=== PATIENT | female | born 1985 | race Hispanic/Latino ===

== ENCOUNTER 2019-09-14 07:26 | Outpatient (CLI) | payer OTHER, SELFPAY ==
--- NOTE | ~2019-09-14 | US_ITS ---
US breast BI complete DATE: 09/14/2019 13:46 INDICATION: Mastodynia TECHNIQUE: Bilateral complete breast ultrasound examination COMPARISON: None FINDINGS: Right breast: 7:00 near nipple: There is a 10.7 x 12.3 mm mass with prominent posterior shadowing. Mammographic cor relation is recommended. Left breast: 6:00 1 cm from nipple: 4.9 x 6.3 x 10 mm parallel irregular hypoechoic mass with internal vascularity is noted. Mammographic correlation is recommended. IMPRESSION: BI-RADS Category 0: Incomplete; need additional imaging evaluation Recommendation: Bilateral diagnostic mammography Reviewed, dictated and finalized at [facility]. Reviewed, dictated and finalized at location A.
--- NOTE | ~2019-09-14 | MM_ITS ---
EXAMINATION: MM diagnostic yesica BI w kalee HISTORY: Bilateral breast sonographic abnormalities TECHNIQUE: ML, MLO and craniocaudal 3-D tomosynthesis images of were performed and synthetic 2-D imag es were generated. CAD analysis was submitted and interpreted. COMPARISON: 09/14/2019 bilateral complete breast ultrasound examination BREAST PARENCHYMAL COMPOSITION: The breasts are heterogeneously dense, which may obscure small masses . FINDINGS: There is a prominent calcification of the right breast in the subareolar area which account s for the prominent area of shadowing noted sonographically. No definite mammographic correlate is noted for the 6:00 left breast 4.9 x 6.3 x 10 mm parallel irreg ular hypoechoic mass with internal vascularity noted sonographically. Ultrasound-guided biopsy is rec ommended. IMPRESSION: 1. Left breast mass at 6:00 1 cm from nipple 2. Ultrasound-guided biopsy of left breast mass at 6:00 is recommended. BI-RADS category 4, suspicious findings. Dr. Mitchell reported the findings and ultrasound guided biopsy recommendation on 09/14/2019 at 1615 hours to Linda Duffy Reviewed, dictated and finalized at location A. IMPRESSION: 1. Left breast mass at 6:00 1 cm from nipple 2. Ultrasound-guided biopsy of left breast mass at 6:00 is recommended. BI-RADS category 4, suspicious findings. Dr. Mitchell reported the findings and ultrasound guided biopsy recommendation on at 1615 hours to Linda Duffy
== END 2019-09-14 07:27 | disposition home or self-care (01) ==
PROVIDERS: Visit Provider Physician Assistant
DX: N64.4 Mastodynia (principal); R92.8 Other abnormal and inconclusive findings on diagnostic imaging of breast
CPT/HCPCS: 76641; 77062; 77066; G0279

== ENCOUNTER 2019-09-18 09:15 | Outpatient (CLI) | payer OTHER, SELFPAY ==
--- NOTE | 2019-09-18 | EST_ITS ---
Patient Info Name: Linda Willett Age: 34 years : 1985 Gender: Female Ht: 62 in Wt: 160 lbs BSA: 1.81 m2 Exam Date: 09/18/2019 9:57 AM Exam Location: [facility] Stress Patient Status: Outpatient Admit Date: 09/18/2019 Staff Ordering Physician: TatiLinda Attending Provider: Tati, Linda EMERY Exercise Technologist: Suellen Owen, BEN Nurse: Bonnie Kevin, ANP, ACNP-BC Exam Type: CA stress test treadmill Study Info Indications R07.9 - Chest pain, unspecified A treadmill exercise stress test was performed. Summary 1. Negative exercise treadmill stress test for ischemia. 2. reduced functional capacity. 3. No significant arrhythmias seen. 4. Hypertensive blood pressure response. Protocol: Mike Stress ECG Details Stage: REST Duration (min): 5 min : 49 sec Speed (mph): 0.0 Grade (%): 0 HR (bpm): 90 SBP (mmHg): 120 DBP (mmHg): 82 METS: --- Stage: REST Duration (min): 18 min : 55 sec Speed (mph): 0.0 Grade (%): 0 HR (bpm): 86 SBP (mmHg): 120 DBP (mmHg): 82 METS: --- Stage: STAGE 1 Duration (min): 1 min : 0 sec Speed (mph): 1.7 Grade (%): 10 HR (bpm): 129 SBP (mmHg): 120 DBP (mmHg): 82 METS: --- Stage: STAGE 1 Duration (min): 2 min : 0 sec Speed (mph): 1.7 Grade (%): 10 HR (bpm): 152 SBP (mmHg): 120 DBP (mmHg): 82 METS: --- Stage: STAGE 1 Duration (min): 3 min : 0 sec Speed (mph): 1.7 Grade (%): 10 HR (bpm): 158 SBP (mmHg): 147 DBP (mmHg): 61 METS: --- Stage: STAGE 2 Duration (min): 1 min : 0 sec Speed (mph): 2.5 Grade (%): 12 HR (bpm): 166 SBP (mmHg): 147 DBP (mmHg): 61 METS: --- Stage: STAGE 2 Duration (min): 2 min : 0 sec Speed (mph): 2.5 Grade (%): 12 HR (bpm): 168 SBP (mmHg): 186 DBP (mmHg): 72 METS: --- Stage: STAGE 2 Duration (min): 3 min : 0 sec Speed (mph): 2.5 Grade (%): 12 HR (bpm): 173 SBP (mmHg): 186 DBP (mmHg): 72 METS: --- Stage: STAGE 3 Duration (min): 0 min : 39 sec Speed (mph): 3.4 Grade (%): 14 HR (bpm): 178 SBP (mmHg): 186 DBP (mmHg): 72 METS: --- Stage: RECOVERY Duration (min): 0 min : 20 sec Speed (mph): 0.0 Grade (%): 0 HR (bpm): 172 SBP (mmHg): 186 DBP (mmHg): 72 METS: --- Stage: RECOVERY Duration (min): 1 min : 20 sec Speed (mph): 0.0 Grade (%): 0 HR (bpm): 132 SBP (mmHg): 186 DBP (mmHg): 72 METS: --- Stage: RECOVERY Duration (min): 2 min : 20 sec Speed (mph): 0.0 Grade (%): 0 HR (bpm): 128 SBP (mmHg): 160 DBP (mmHg): 52 METS: --- Stage: RECOVERY Duration (min): 3 min : 20 sec Speed (mph): 0.0 Grade (%): 0 HR (bpm): 116 SBP (mmHg): 158 DBP (mmHg): 64 METS: --- St
== END 2019-09-18 09:16 | disposition home or self-care (01) ==
LOC: ANHCARD 09:16
PROVIDERS: Visit Provider Physician Assistant
DX: R07.9 Chest pain, unspecified (principal)
CPT/HCPCS: 93017

== ENCOUNTER 2019-09-25 09:17 | Outpatient (CLI) | payer OTHER, SELFPAY ==
--- NOTE | ~2019-09-25 | MMUS_ITS ---
EXAMINATION: US breast biopsy LT w image, MM post biopsy invasive LT DATE: 09/25/2019 11:54 (accession [id number]), 09/25/2019 11:27 (accession [id number]) INDICATION: Indeterminate left breast mass Ultrasound-guided core biopsy is requested to evaluate fo r malignancy. TECHNIQUE AND FINDINGS: The risks of the procedure were discussed with the patient through a deputy [place] marshal including bleeding an d infection. A time out was performed. The skin of the left breast was prepared and draped in usual s terile fashion. 1% lidocaine was used for superficial anesthesia. 1% lidocaine with epinephrine was u sed for deep anesthesia. A vacuum-assisted biopsy gun needle was advanced through to the outer edge of the region of interest from a lateral approach utilizing sonographic guidance. A total of three tissue core samples were obt ained through the lesion. A tissue marker clip was then placed at the biopsy site. Hemostasis was ach ieved. A sterile bandage was applied. The patient tolerated procedure well and there was no evidence of immediate complication. The patient was given verbal instructions to return to the Emergency Department in the event of severe breast pa in or rapid breast enlargement. A two view left breast mammogram was obtained to document tissue adriano er clip placement. IMPRESSION: 1. Successful ultrasound-guided vacuum-assisted biopsy of left breast mass with tissue marker placeme nt. Reviewed, dictated and finalized at location A. IMPRESSION: 1. Successful ultrasound-guided vacuum-assisted biopsy of left breast mass with tissue marker placement.
== END 2019-09-25 09:18 | disposition home or self-care (01) ==
PROVIDERS: PCP Physician Assistant; Visit Provider Physician Assistant
DX: R92.8 Other abnormal and inconclusive findings on diagnostic imaging of breast (principal)
CPT/HCPCS: 19083; 88305

== ENCOUNTER 2019-12-19 16:14 | Emergency (ER) | payer OTHER, SELFPAY ==
--- NOTE | ~2019-12-19 | CT_ITS ---
EXAMINATION: CT brain wo con DATE: 12/19/2019 17:50 INDICATION: Severe headache TECHNIQUE: Computed tomography (CT) of the head was performed without intravenous contrast. Sagittal and coronal reconstructions were performed. The mA was adjusted according to patient size. Iterative reconstruction technique was employed. The dose-length product was 605.33 mGy-cm. COMPARISON: None FINDINGS: No acute intracranial hemorrhage, acute infarction or abnormal extra axial fluid collection. Ventricl es are normal and symmetric. No mass/mass effect. The orbits, paranasal sinuses and mastoid air cells are normal. IMPRESSION: 1. Normal brain. No acute intracranial process. Reviewed, dictated and finalized at location A.
[2019-12-19 16:52] VITALS: BP 121/83; PULSE 87; RESP 20; TEMP 36.4; O2SAT 100
--- NOTE | 2019-12-19 16:57 | ED.HA ---
HPI - Headache General Chief Complaint: Headache Stated Complaint: CHERRY Time Seen by Provider: 12/19/19 16:57 History of Present Illness HPI Narrative: Previously healthy 34 yo female presents for a CHERRY. She has had a constant CHERRY for the past 6 days. It radiates from the left arm and neck to the posterior head. She has associated dizzinees, especially with movement. She saw her PCP and was started on sumatriptan, which has not helped. No numbness, weakness, fever, nausea, vomiting, photophobia. Related Data Allergies Allergy/AdvReac Type Severity Reaction Status Date / Time No Known Allergies Allergy Verified 12/19/19 17:17 Review of Systems Review of Systems: All systems reviewed & are unremarkable except as noted in HPI and below Constitutional: Constitutional: Denies fever(s) and Denies weakness Eyes: Eyes: Denies change in vision and Denies photophobia ENT: Denies sore throat Comments: left ear pain Cardiovascular: Cardiovascular: Denies chest pain Respiratory: Respiratory: Denies dyspnea Gastrointestinal: Gastrointestinal: Denies abdominal pain Musculoskeletal: Musculoskeletal: Denies back pain Neurologic: Reports vertigo, Denies syncope, Reports headache(s), Denies numbness and Denies weakness PMFSH Social History Social History Smoking status: Never smoker Exam Const: General: healthy appearing, no acute distress and alert Nutritional Appearance: well nourished Orientation/consciousness: patient oriented x3 HENMT: Head: normal to inspection Ears: TM's normal bilaterally and EAC's normal Eyes: Pupils: Equal, round and reactive pupils present EOM: EOMs intact bilaterally Resp: Effort & Inspection: normal respiratory effort Auscultation: clear to auscultation bilaterally Cardio: Rate: regular rate Rhythm: regular rhythm GI: GI Palp: Yes Soft to palpation and No Tenderness to palpation present (GI) Skin: General skin exam: normal color Neuro: General: patient oriented x3, moves all extremities, no focal motor deficits and CN's II-XI intact bilaterally Cranial nerves: Yes Nystagmus not present (becomes dizzy with testing) Speech: normal speech Extrem: General: normal to inspection Course Vital Signs Vital signs: Vital Signs Temperature 36.4 C 12/19/19 16:52 Pulse Rate 87 12/19/19 16:52 Respiratory Rate 20 12/19/19 16:52 Blood Pressure 121/83 12/19/19 16:52 Pulse Oximetry 100 12/19/19 16:52 Temperature 36.4 C 12/19/19 16:52 Pulse Rate 87 12/19/19 16:52 Respiratory Rate 12/19/19 16:52 Blood Pressure 121/83 12/19/19 16:52 Pulse Oximetry 100 12/19/19 16:52 MDM - Headache MDM Narrative Medical decision making narrative: CT negative. Mild improvement in pain with treatment. CHERRY seems most consistent with tension headache. Differential Diagnosis Differential diagnosis: Likely migraine, tension headache and headache Medical Records Attestation: I reviewed the patient's medical records. Lab Data Attestation: I reviewed the patient's lab results. Imaging Data Radiologist's impression: ITS Impressions Head CT 12/19/19 17:59 IMPRESSION: 1. Normal brain. No acute intracranial process. Discharge Plan Discharge Clinical Impression: Tension headache Patient Disposition: Home, Self-Care Condition: Stable Instructions: Tension Headache (ED) Prescriptions: New ibuprofen 600 mg tablet 600 mg PO QID PRN (Reason: pain) Qty: 30 RF: 0 acetaminophen 500 mg tablet 1,000 mg PO QID MDD 3000 mg PRN (Reason: pain) Qty: 60 RF: 0 meclizine 25 mg tablet 25 - 50 mg PO TID PRN (Reason: dizziness) Qty: 30 RF: 0 Follow-up/Referrals: Tati,RUPERT Rousseau [Primary Care Provider] -
[2019-12-19] MEDS: SODIUM CHLORIDE 0.9% IV 1,000 ML 999 ML IV CONT (17:23)
[2019-12-19] MEDS: KETOROLAC 30 MG/ML VIAL (*BKC) IV PUSH (17:24)
[2019-12-19] MEDS: METOCLOPRAMIDE HCL INJ 10 MG/2 ML VIAL IV PUSH (17:24)
[2019-12-19] MEDS: diphenhydrAMINE HCl INJ 50 MG/ML VIAL 25 MG IV PUSH (17:24)
[2019-12-19] MEDS: diazePAM INJ (*CRX) 10 MG/2 ML SYRINGE 2 MG IV PUSH (17:24)
[2019-12-19] MEDS: MECLIZINE HCL 25 MG TABLET PO (18:46)
[2019-12-19] MEDS: VALPROIC ACID INJ 500 MG in DEXTROSE 5% 100 ML 100 MG IVPB (18:46)
[2019-12-19 19:56] VITALS: BP 122/78; PULSE 88; RESP 18; TEMP 36.6; O2SAT 98
== END 2019-12-19 19:57 | disposition home or self-care (01) ==
PROVIDERS: Emergency Provider Emergency Medicine; PCP Physician Assistant
DX: G44.209 Tension-type headache, unspecified, not intractable (principal)
CPT/HCPCS: 70450; 96365; 96367; 96375; 99284; A9270; J0131; J1200; J1885; J2765; J3360; J7030

== ENCOUNTER 2020-05-16 14:45 | Emergency (ER) | payer OTHER, SELFPAY ==
--- NOTE | ~2020-05-16 | XR_ITS ---
EXAMINATION: XR chest 1V portable DATE: 05/16/2020 15:51 INDICATION: Right chest pain. TECHNIQUE: A single frontal view of the chest was obtained. COMPARISON: None. FINDINGS: There is mild atelectasis at left lung base. No pleural effusion or pneumothorax. The heart size is normal. IMPRESSION: 1. Mild atelectasis at left lung base. Reviewed, dictated and finalized at location A. GE DESIGN ENGINEER
[2020-05-16 14:49] VITALS: BP 143/95; PULSE 93; RESP 15; O2SAT 100
[2020-05-16 14:57] VITALS: PULSE 91
--- NOTE | 2020-05-16 15:12 | PC.NURSE ---
Report to RITA Gordon, to continue care.
[2020-05-16 15:21] VITALS: BP 137/97; PULSE 95; RESP 20; TEMP 36.7; O2SAT 97
--- NOTE | 2020-05-16 15:24 | ECG_ITS ---
Measurements Intervals [place] Rate: 90 P: 38 PA: 132 QRS: 4 QRSD: 108 T: 31 QT: 371 QTc: 455 Interpretive Statements SINUS RHYTHM LOW QRS VOLTAGE IN PRECORDIAL LEADS BORDERLINE T WAVE ABNORMALITY- ANTERIOR LEADS BASELINE ARTIFACT- I, II, AVR, V1, V3-V6 BORDERLINE ECG Electronically Signed On 05-16-2020 16:19:30 CONTRACT COORDINATOR by Eugene Contreras D.O.
[2020-05-16 15:36] LABS: Basophils Absolute Auto 0.1 K/mm3 (0.0-0.1); Basophils Percent Auto 0.8 % (0.2-1.2); Eosinophils Absolute Auto 0.2 K/mm3 (0-0.3); Eosinophils Percent Auto 2.5 % (0-4.4); Hemoglobin 11.9 g/dL (12.0-15.0); Immature Granulocyte Absolute 0.03 K/mm3 (0.00-0.031); Immature Granulocyte Percent A 0.4 % (0-0.5); Lymphocytes Absolute Auto 2.75 K/mm3 (0.9-3.2); Lymphocytes Percent Auto 32.5 % (18.3-44.2); Mean Corpuscular Hemoglobin 29.2 pg (26-34); Mean Corpuscular Volume 85.8 fl (80-100); Mean Platelet Volume 10.8 fl (7.4-10.4); Monocytes Absolute Auto 0.8 K/mm3 (0.1-0.6); Monocytes Percent Auto 9.8 % (2.6-8.5); Neutrophils Absolute Auto 4.6 K/mm3 (1.3-6.7); Platelet Count Result 335 k/mm3 (150-375); Red Blood Count 4.08 M/mm3 (4.2-5.4); Red Cell Distribution Width 13.5 % (11.5-14.5); White Blood Count 8.5 K/mm3 (4.5-10.0)
--- NOTE | 2020-05-16 15:37 | PC.NURSE ---
Patient reports taking 1000mg tylenol approximately 2 hours ago.
[2020-05-16 15:58] LABS: Anion Gap 9 mmol/L (8-16); Blood Urea Nitrogen 9 mg/dL (7-17); Calcium 9.1 mg/dL (8.4-10.2); Carbon Dioxide 25 mmol/L (22-30); Chloride 105 mmol/L (98-107); Estimated CRCL calculation 139 ml/min; Estimated Glomerular Filt Rate > 60; Glucose 101 mg/dL (65-105); Potassium 3.4 mmol/L (3.4-5.0); Sodium 139 mmol/L (137-145)
[2020-05-16 15:59] LABS: Troponin I < 0.012 ng/mL (0.000-0.034)
[2020-05-16 15:59] LABS: Add Urine Microscopic? YES; Appearance Urine Clear (Clear); Bilirubin Urine Negative (Negative); Blood Urine 2+ (Negative); Color Urine Colorless (Yellow); Glucose Urine UA Negative (Negative); Ketones Urine Negative (Negative); Leukocyte Esterase Ur Negative LEU/UL (Negative); Mucus Urine Rare /lpf; Nitrate Urine Negative (Negative); Protein Urine Negative (Negative); RBC Urine 0-2 /hpf (0-2); Specific Grav Ur 1.008 (1.001-1.035); Squamous Epithelial Cell Urine Occasional /hpf (Few); Urobilinogen Urine Negative mg/dL (<2.0); WBC Urine 0-3 /hpf
[2020-05-16 16:17] VITALS: BP 108/74; PULSE 116; RESP 22; O2SAT 100
--- NOTE | 2020-05-16 16:24 | ED.GENADULT ---
HPI - General Adult General Chief complaint: Chest Pain Stated complaint: CP, throat, and ear pain Time Seen by Provider: 05/16/20 14:53 Source: patient and interpreter translator ([employer]) Mode of arrival: ambulatory Limitations: language barrier History of Present Illness HPI narrative: 34-year-old female On April 23 she was tested positive for Covid On May 08 she exited quarantine and went back to work For the last week she continues to complain of ear pain mostly on the right side a sore scratchy throat fatigue aches and right-sided chest pain She is not having any more productive cough or fevers Onset (ago): day(s) Related Data Home Medications Medication Instructions Recorded Confirmed azithromycin 500 mg PO DAILY 05/16/20 Allergies Allergy/AdvReac Type Severity Reaction Status Date / Time Penicillins Allergy Rash Verified 05/16/20 15:24 Review of Systems Review of Systems: All systems reviewed & are unremarkable except as noted in HPI and below Constitutional: Constitutional: Denies chills, Reports fatigue, Denies fever(s), Denies headache(s) and Reports weakness Eyes: Eyes: Reports no additional eye complaints and Denies change in vision ENT: Denies headache(s), Denies epistaxis, Reports nasal congestion and Denies sore throat Comments: Sore throat Cardiovascular: Cardiovascular: Reports chest pain, Denies leg edema, Denies palpitations and Denies dyspnea Respiratory: Respiratory: Denies cough, Denies dyspnea and Denies wheezing Gastrointestinal: Gastrointestinal: Denies abdominal pain, Denies diarrhea, Reports nausea and Denies vomiting Genitourinary: Genitourinary: Denies hematuria, Denies urinary frequency and Denies dysuria Musculoskeletal: Musculoskeletal: Reports myalgias, Denies deformity, Denies arthralgias, Denies joint swelling, Denies muscle weakness and Denies numbness Integumentary/Breasts: Skin/Breast: Denies rash and Denies wounds Neurologic: Denies headache(s), Denies focal weakness, Denies numbness and Denies weakness Psychiatric: Psychiatric: Reports no additional psychiatric complaints Endocrine: Endocrine: Reports fatigue and Denies palpitations Hematologic/Lymphatic: Hematologic/Lymphatic: Denies easy bleeding and Denies easy bruising Allergic/Immunologic: Allergic/Immunologic: Denies wheezing PMFSH Social History Social History (System 12/20/19 @ 12:27 by Ying Jang) Smoking status: Never smoker Gender identity (if verbalized by the patient): Female Exam Const: General: no acute distress, well developed and awake Nutritional Appearance: well nourished Orientation/consciousness: patient oriented x3 (alert) HENMT: Head: normocephalic and atraumatic Ears: external ears normal and TM's normal bilaterally General nose exam: No nasal discharge present and no epistaxis Face and sinus: face symmetric Mouth: Yes Normal oral and palatal mucosa present Eyes: Conjunctivae: conjunctivae normal Sclera: sclerae normal EOM: EOMs intact bilaterally Neck: Neck: normal visual inspection, no lymphadenopathy, supple and no JVD Chest: Chest palpation & inspection: deferred Resp: Effort & Inspection: normal respiratory effort Auscultation: clear to auscultation bilaterally, no rales, no rhonchi, no wheezes and other (BS =) Cardio: Rate: regular rate Rhythm: regular rhythm Heart sounds: no gallops and no murmurs GI: Inspection: normal to inspection GI Palp: Yes Soft to palpation and No Tenderness to palpation present (GI) Back/Spine/Pelvis: Thoracic/Lumbar Spine: thoracic and lumbar spine normal to inspection Skin: General skin exam: normal color and no rashes or lesions noted Neuro: General: patient oriented x3 (alert), moves all extremities and no focal motor deficits Cranial nerves: Yes facial symmetry Speech: normal speech Extrem: General: normal to inspection, full ROM and no pedal edema Psych: Affect: normal affect Course Vital Signs Joselyn
[2020-05-16 17:17] VITALS: BP 112/82; PULSE 81; RESP 14; TEMP 36.2; O2SAT 100
== END 2020-05-16 17:32 | disposition home or self-care (01) ==
PROVIDERS: Emergency Provider Emergency Medicine; PCP Physician Assistant
DX: G93.3 Postviral and related fatigue syndromes (principal); Z86.16 Personal history of COVID-19; R91.8 Other nonspecific abnormal finding of lung field; R94.31 Abnormal electrocardiogram [ECG] [EKG]
CPT/HCPCS: 36415; 71045; 80048; 81001; 84484; 85025; 93005; 99284

== ENCOUNTER 2020-08-30 15:37 | Outpatient (CLI) | payer OTHER, SELFPAY ==
--- NOTE | ~2020-08-30 | US_ITS ---
EXAMINATION: US soft tissue groin RT DATE: 08/30/2020 16:57 INDICATION: Unilateral inguinal hernia TECHNIQUE: Multiple grayscale and Doppler ultrasound images of the right groin were obtained. COMPARISON: None FINDINGS: Small amount of fat extending into an indirect right inguinal hernia originating lateral to the hypog astric vessels. This increases to a maximal of 2 cm in length and 1 cm in diameter with Valsalva. No evident herniated bowel. IMPRESSION: 1. Small fat-containing right inguinal hernia. Reviewed, dictated and finalized at location A.
--- NOTE | ~2020-08-30 | US_ITS ---
EXAMINATION: US carotid duplex BI DATE: 08/30/2020 16:53 INDICATION: Dizziness and giddiness. TECHNIQUE: Grayscale, color Doppler, and pulsed Doppler images of the cervical carotid arteries were obtained. The degree of vessel stenosis is placed in one of the following categories: normal, <50%, 5 0-69%, >=70% but less than near-occlusion, near-occlusion, or total occlusion. Note that percent sten osis relative to normal distal artery lumen diameter is indirectly measured from velocity measurement s as described by Wiley, et al. Radiology 2003; 229:340-346. COMPARISON: None. FINDINGS: RIGHT: The right common carotid artery (CCA) peak systolic velocity (PSV) is 103 cm/s. The right internal ca rotid artery (ICA) PSV is 90 cm/s. The right ICA end-diastolic velocity (EDV) is 19 cm/s. The right I CA/CCA PSV ratio is 0.9. Grayscale and color Doppler images demonstrate no evident stenosis or plaque in the ICA. The external carotid artery (ECA) PSV is 90 cm/s. There is antegrade flow in the right v ertebral artery. LEFT: The left CCA PSV is 92 cm/s. The left ICA PSV is 82 cm/s. The left ICA EDV is 40 cm/s. The left ICA/C CA PSV ratio is 0.9. Grayscale and color Doppler images demonstrate no appreciable stenosis or plaque in the ICA. The ECA PSV is 74 cm/s. There is antegrade flow in the left vertebral artery. IMPRESSION: 1. No evident plaque or stenosis in the right internal carotid artery. 2. No evident plaque or stenosis in the left internal carotid artery. Reviewed, dictated and finalized at location A.
== END 2020-08-30 15:38 | disposition home or self-care (01) ==
PROVIDERS: PCP Physician Assistant; Visit Provider Physician Assistant
DX: R42 Dizziness and giddiness (principal); K40.90 Unilateral inguinal hernia, without obstruction or gangrene, not specified as recurrent
CPT/HCPCS: 76882; 93880

== ENCOUNTER 2021-01-28 17:31 | Emergency (ER) | payer OTHER, SELFPAY ==
[2021-01-28 17:41] VITALS: BP 147/103; PULSE 61; RESP 18; TEMP 36.2; O2SAT 100
--- NOTE | 2021-01-28 19:14 | ED.GENADULT ---
HPI - General Adult General Chief complaint: Dental/Oral Stated complaint: dental pain Time Seen by Provider: 01/28/21 18:08 Source: patient Mode of arrival: ambulatory Limitations: language barrier (Mozambican-speaking translation line used) History of Present Illness HPI narrative: Patient is a 35-year-old female presented with chief complaint of dental pain causing headache due to to upper molar for labor point year ago when it broke 1 month ago. Patient reports over the past few days she has noticed increased pain especially to the left upper molar. Patient denies any drainage from the area. Patient reports she has been attempting to get into a dentist but has not been able to obtain an appointment today. Patient fever, chills, nausea, vomiting, diarrhea or any other symptoms. Patient denies chance of due to surgical control method. Related Data Allergies Allergy/AdvReac Type Severity Reaction Status Date / Time No Known Allergies Allergy Verified 01/28/21 17:44 Review of Systems Review of Systems: CONSTITUTIONAL: Denies fever, chills, or sweats. EYES: Denies visual changes, redness, or discharge. ENT: Reports dental pain denies rhinorrhea, congestion, sore throat, or otalgia. CARDIOVASCULAR: Denies chest pain, palpitations, or edema. RESPIRATORY: Denies cough or dyspnea. GASTROINTESTINAL: Denies abdominal pain, nausea, vomiting, or diarrhea. GENITOURINARY: Denies dysuria or hematuria. SKIN: Denies rash or itching. MUSCULOSKELETAL: Denies back pain, joint pain, or myalgia. NEUROLOGIC: Reports headache, denies numbness, dizziness, or weakness. PSYCHIATRIC: Denies anxiety or depression. Exam Narrative: GENERAL: Well-appearing, well-nourished, and in no acute distress. HEAD: Normocephalic, atraumatic. EYES: PERRLA and EOMI. ENT: Nares clear, no rhinorrhea or epistaxis. Mucous membranes moist. Oropharynx without tonsillar hypertrophy exudate or other lesions. Bilateral TMs pearly ramon nonbulging. Cavities and broken induration noted. Is a broken upper left molar. No abscess is noted there is mild erythema. NECK: Supple. No adenopathy or masses. Range of motion intact CHEST: Clear to auscultation. No respiratory distress. No wheezes rales or rhonchi HEART: Regular rate and rhythm. No murmur heard. Normal peripheral pulses EXTREMITIES: Normal range of motion. No edema. SKIN: Warm, dry, no rash. NEURO: No focal deficits. Alert and oriented x3. PSYCH: Normal mood and affect. Course Vital Signs Vital signs: Vital Signs Temperature 97.1 F L 01/28/21 17:41 Pulse Rate 61 01/28/21 17:41 Respiratory Rate 18 01/28/21 17:41 Blood Pressure 147/103 H 01/28/21 17:41 Pulse Oximetry 100 01/28/21 17:41 Temperature 97.1 F L 01/28/21 17:41 Pulse Rate 80 01/28/21 19:48 Respiratory Rate 16 01/28/21 19:48 Blood Pressure 111/65 01/28/21 19:48 Pulse Oximetry 100 01/28/21 19:48 Medical Decision Making MDM Narrative Medical decision making narrative: Presents with patient the importance of following up with dentist for definitive treatment. Patient will be prescribed cephalexin. Patient reports allergy to penicillin but states that she has not had any results from the blood thinner in the past. Patient will also be prescribed naproxen and lidocaine viscous. Patient is desiring Toradol injection in emergency department. Patient instructed to return to emergency department if develops any emergent symptoms. Vital Signs Vital Signs: Vital Signs Temperature 97.1 F L 01/28/21 17:41 Pulse Rate 61 01/28/21 17:41 Respiratory Rate 18 01/28/21 17:41 Blood Pressure 147/103 H 01/28/21 17:41 Pulse Oximetry 100 01/28/21 17:41 Temperature 97.1 F L 01/28/21 17:41 Pulse Rate 80 01/28/21 19:48 Respiratory Rate 16 01/28/21 19:48 Blood Pressure 111/65 01/28/21 19:48 Pulse Oximetry 100 01/28/21 19:48 Discharge Plan Discharge Clinical Impression: Toothache
[2021-01-28 19:48] VITALS: BP 111/65; PULSE 80; RESP 16; O2SAT 100
[2021-01-28] MEDS: KETOROLAC 30 MG/ML VIAL (*BKC) IM (19:49)
== END 2021-01-28 19:55 | disposition home or self-care (01) ==
PROVIDERS: Emergency Provider Family Medicine; PCP Physician Assistant
DX: K08.89 Other specified disorders of teeth and supporting structures (principal)
CPT/HCPCS: 96372; 99283; J1885

== ENCOUNTER 2021-09-29 15:56 | Outpatient (CLI) | payer OTHER, SELFPAY ==
--- NOTE | ~2021-09-29 | XR_ITS ---
EXAMINATION: XR chest 2V 09/29/2021 16:38 INDICATION: Chest pain. Cough. PROCEDURE: 2 view chest COMPARISON: 05/16/2020 FINDINGS: The lungs are clear. The cardiomediastinal silhouette is within normal limits. There are no pleural effusions. There is no pneumothorax suspected. IMPRESSION: 1: NO ACUTE CARDIOPULMONARY DISEASE. Reviewed, dictated and finalized at location A.
--- NOTE | ~2021-09-29 | XR_ITS ---
XR thoracic spine 2V 09/29/2021 16:38 Indication: Thoracic back pain and cough Procedure: 2 views of the thoracic spine Comparison: No prior studies for comparison. Findings: Vertebral body heights are maintained. No fracture, subluxation or dislocation. Pedicles in tact. No paraspinal soft tissue abnormality. There is levoscoliosis centered at T10. No paraspinal so ft tissue abnormality. Impression: 1: Levoscoliosis. Reviewed, dictated and finalized at location A. Impression: 1: Levoscoliosis.
--- NOTE | ~2021-09-29 | XR_ITS ---
XR cervical spine 4-5V INDICATION: Neck pain TECHNIQUE: 5 views of the cervical spine. FINDINGS: The cervical spine is visualized to the cervicothoracic junction. There is no prevertebral soft tiss ue swelling, listhesis, or loss of vertebral body height. Intervertebral disc spaces are normal. Th e osseous central canal is patent. No displaced cervical spine fractures are identified. IMPRESSION: 1. No significant abnormality of the cervical spine. Reviewed, dictated and finalized at location A.
== END 2021-09-29 15:57 | disposition home or self-care (01) ==
PROVIDERS: PCP Physician Assistant; Visit Provider Physician Assistant
DX: M54.6 Pain in thoracic spine (principal); M54.2 Cervicalgia; R05.3 Chronic cough; M41.9 Scoliosis, unspecified
CPT/HCPCS: 71046; 72050; 72070

== ENCOUNTER 2021-11-07 11:00 | Outpatient (RCR) | payer OTHER, SELFPAY ==
--- NOTE | 2021-09-26 11:04 | PTOPEVAL ---
Thank you for referring Linda Willett to [facility].? Linda is scheduled to be seen for therapy? 1 x/week for 6 weeks. Please review, sign, date and return this plan of care NOHELIA. I agree with and certify that the following plan of care is medically necessary. Referring Physician Date Attending Provider: RUPERT Ponce Past Medical History Source of Past Medical History Recalled from Previous Visit, Confirmed with Patient/Family Neurological History Hx Neurological Disorders No Significant History Cardiovascular History Hx Cardiac Disorders No Significant History Respiratory History Hx Respiratory Disorders No Significant History Gastrointestinal History Hx Appendectomy Yes Genitourinary History Hx Genitourinary Disorders No Significant History Musculoskeletal History Hx Back Pain Yes Hematological History Hx Hematological Disorders No Significant History Endocrine History Hx Diabetes Yes HEENT History Hx HEENT Disorders No Significant History Integumentary History Hx Skin Disorders No Significant History Reproductive History Hx Section Yes Hx Other Reproductive Disorders Yes: breast reduction Psychosocial History Hx Psychiatric Disorders No Significant History Pain History History of Any Previous or Ongoing No Significant History Instance of Pain Anesthesia History Hx Anesthesia Reactions No Significant History Evaluation Information Diagnosis chronic L shoulder pain Subjective Information both shoulders hurting for Query Text:As Reported By Patient/ about 4 years; no injury or Family trauma to shoulders; but 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; 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; 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; Diagnostic Tests X-Rays For This Problem No MRI For This Problem No Other Tests For This Problem No Previous Treatments Previous Treatments For This Problem PT in past- was for back pain; Prior Level of Function Activity Level (Last 3 Months) Hand Dominance Right Activity of Daily Living Ability Independent Indoor/Home Mobility Independent Community Mobility Independent Stairs Ability Independent Functional Cognition (Planning, Shopping Independent , Taking Medications) Cooking Yes Cleaning Yes Laundry Yes Shopping Yes Driving Yes Comments Additional Prior Level of Function baby sit children; lifting arm Comments up is hard to do; Pain Assess
--- NOTE | 2021-11-07 11:52 | PTOPEVAL ---
PHYSICAL THERAPY RE-EVALUATION 11-07-21 Refer to the clinical summary below, for her status today, compared to the initial evaluation. The goals were partially achieved. Discussed with her to contact you for a follow up appointment to reassess her shoulder. If PT is to continue, please issue her a new script, If additional orders are not received, she will be discharged from PT. Thank you for referring Linda Willett to [facility].? Please review, sign, date and return this Reevaluation report NOHELIA. I agree with and certify that the following plan of care is medically necessary. Referring Physician Date Attending Provider: RUPERT Ponce Subjective Information Linda reports: pain and Query Text:As Reported By Patient/ movement is better; hard to Family always do the exercises, since have 2 jobs; with sleeping, no waking up due to pain anymore; Pain Assessment Pain Scale Pain Scale Used Numeric (1 - 10) Self Report Pain Assessment Left Shoulder(s) Reported Pain Level 3 Pain Frequency Chronic,Intermittent Other Pain Description anterior shoulder Lowest Pain Intensity 3 Greatest Pain Intensity 6 Pain Aggravating Factors Exercise/Activity Other Pain Aggravating Factors shoulder abduction increase shoulder pain Pain Behaviors Anxious,Grimacing,Guarding Additional Pain Score Comments increase pain after working and lifting boxes at work-- asked about a paper for work so she does not have to do the lifting--discussed with her that any work restrictions have to be from the dr; Interventions Used Interventions Used By Clinicians Education,Exercise Pain Relief Interventions Used By Ice,Inactivity/Rest Patient Other Alleviating Interventions rub front of shoulder Upper Extremity Range of Motion Scapular/ Shoulder Range of Motion Left Shoulder Flexion - Active 160 Shoulder Abduction - Active 160 Shoulder Medial Rotation - Active fingers to middle of scapula Query Text:Reach Behind the Back Shoulder Lateral Rotation - Active palm to neck Query Text:Reach Behind the Head Scapular/Shoulder Range of Motion reports most pain increase Comments with L shoulder IR- little pain increase; shoulder flexion and abduction no increase pain; Gross Upper Extremity Strength Comments L shoulder strength- functional testing: standing with 3# hand wt: shoulder flexion to ~ 150' x
--- NOTE | 2021-12-15 10:49 | PCPTNOTE ---
PHYSICAL THERAPY DISCHARGE 12-15-21 Attending Provider: RUPERT Ponce Patient:Linda Willett Date of :1985 Linda has not returned for any further treatments since the reevaluation on 11/07/2021, therefore she will be discharged at this time. Refer to the reeval report for her status at the last session. Thank you for referring this patient to [facility].
== END 2021-12-15 10:48 | disposition home or self-care (01) ==
LOC: ANHPT 11:00
PROVIDERS: PCP Physician Assistant; Referring Provider Physician Assistant; Visit Provider Physician Assistant
DX: M25.512 Pain in left shoulder (principal)
CPT/HCPCS: 97110; 97140; 97161

== ENCOUNTER 2021-11-26 07:31 | Outpatient (CLI) | payer OTHER, SELFPAY ==
--- NOTE | ~2021-11-26 | CT_ITS ---
EXAMINATION: CT abdomen pelvis wo con DATE: 11/26/2021 08:05 INDICATION: Right inguinal hernia TECHNIQUE: Computed tomography (CT) of the abdomen and pelvis was performed without intravenous contr ast. The dose-length product (DLP) was 635.44 mGy-cm. Automated exposure control and iterative recons truction technique were employed. COMPARISON: None FINDINGS: Minimal dependent atelectasis is present in the lung bases. The heart size is normal. The l iver, spleen, pancreas, gallbladder, and adrenal glands are normal. The right kidney is unremarkable. There is a 2 mm nonobstructing stone of the left kidney. No pathologically enlarged abdominal or pel kody lymph nodes are identified. There is no free intraperitoneal gas or evidence of bowel obstruction . There are small fat-containing inguinal hernias. IMPRESSION: 1. Small inguinal hernias containing fat. Reviewed, dictated and finalized at location B.
== END 2021-11-26 07:32 | disposition home or self-care (01) ==
PROVIDERS: PCP Physician Assistant; Visit Provider Physician Assistant
DX: K40.90 Unilateral inguinal hernia, without obstruction or gangrene, not specified as recurrent (principal)
CPT/HCPCS: 74176

== ENCOUNTER 2022-02-04 09:10 | Emergency (ER) | payer OTHER, SELFPAY ==
--- NOTE | ~2022-02-04 | CT_ITS ---
EXAMINATION: CT abdomen pelvis w con DATE: 02/04/2022 11:20 INDICATION: Left lower quadrant and epigastric abdominal pain. Nausea. Diarrhea. TECHNIQUE: Computed tomography (CT) of the abdomen and pelvis was performed with 100 mL Omnipaque 350 intravenous contrast. Automated exposure control and iterative reconstruction technique were employe d. The dose-length product was 678.62 mGy-cm. COMPARISON: CT abdomen and pelvis 11/26/2021 FINDINGS: The visualized portions of the lung bases demonstrate mild atelectasis. No pleural effusion . The heart size is normal. No pericardial effusion. The liver, gallbladder, spleen, pancreas, adrena l glands, and kidneys are normal. There are no dilated loops of bowel. The appendix is not visualized . There are no pathologically enlarged lymph nodes. There is physiologic fluid in the pelvis. There i s mild thoracolumbar spondylosis. IMPRESSION: 1. No etiology for the patient's symptoms. Reviewed, dictated and finalized at location A. 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
--- NOTE | ~2022-02-04 | XR_ITS ---
EXAMINATION: XR chest 2V DATE: 02/04/2022 11:47 INDICATION: Cough. Epigastric abdominal pain. TECHNIQUE: Frontal and lateral views of the chest were obtained. COMPARISON: Chest 2 views 09/29/2021, CT abdomen and pelvis 02/04/2022 FINDINGS: The chest demonstrates clear lungs without pneumonia, pleural effusion, or pneumothorax. Th e heart size is normal. IMPRESSION: 1. No acute cardiopulmonary disease. Reviewed, dictated and finalized at location A. DEVELOPER
[2022-02-04 09:35] VITALS: BP 111/74; PULSE 81; RESP 16; TEMP 36.5; O2SAT 100
--- NOTE | 2022-02-04 10:10 | ED.ABDPAIN ---
HPI - Abdominal Pain General Chief Complaint: Abdominal Pain Stated Complaint: diarrhea, abd pain Time Seen by Provider: 02/04/22 09:24 Source: patient Mode of arrival: ambulatory Limitations: no limitations and language barrier History of Present Illness HPI narrative: Patient is a 36-year-old female who presents the ED with multiple complaints. Patient is primarily Maltese-speaking. IM5 spanish interpreter was utilized for translation. Patient reports having left-sided and upper abdominal pain for the past 6 days. She also reports having nausea, diarrhea, subjective fevers, cough, congestion, sore throat. Denies any sick contacts. She has been taking Tylenol and omeprazole for her symptoms. No rectal bleeding, melena, hematemesis, chest pain, difficulty breathing. She is vaccinated for COVID, but not for flu. Related Data Home Medications Medication Instructions Recorded Confirmed azithromycin 500 mg tablet 500 mg PO DAILY 05/16/20 10/13/21 simvastatin 20 mg tablet 20 mg PO DAILY 10/13/21 10/13/21 Allergies Allergy/AdvReac Type Severity Reaction Status Date / Time Penicillins Allergy Rash Verified 02/04/22 10:02 Review of Systems Review of Systems: CONSTITUTIONAL: Reports subjective fevers. ENT: Reports rhinorrhea, congestion, sore throat. CARDIOVASCULAR: Denies chest pain. RESPIRATORY: Reports cough. Denies dyspnea. GASTROINTESTINAL: Reports abdominal pain, nausea, and diarrhea. Denies vomiting, rectal bleeding, melena. GENITOURINARY: Denies dysuria or hematuria. All systems reviewed & are unremarkable except as noted in HPI and below PMFSH Past Medical History Medical History (Updated 02/04/22 @ 13:43 by Adriana Mayberry PA-C) Diabetes mellitus Dyslipidemia GERD (gastroesophageal reflux disease) Surgical History Surgical History (Updated 02/04/22 @ 10:26 by Adriana Mayberry PA-C) No pertinent past surgical history Social History Social History Smoking status: Never smoker Gender identity (if verbalized by the patient): Female Exam Narrative: GENERAL: Well appearing, well-nourished, non-toxic, in no acute distress. HEAD: Normocephalic, atraumatic. ENT: Minimal posterior pharynx erythema, no tonsillar hypertrophy or exudate. No nasal drainage. PERRLA, EOMI, conjunctiva clear. NECK: Supple. No adenopathy, no masses. RESPIRATORY: Airway patent, respirations nonlabored. Clear to auscultation bilaterally, no rales, rhonchi, wheezing. CARDIOVASCULAR: Regular rate and rhythm without murmurs, rubs, or gallops. Peripheral pulses 2+ and equal bilaterally. ABDOMINAL: Soft, mild tenderness palpation diffusely, worst in epigastric region, left lower quadrant. Nondistended, no hepatosplenomegaly. Normoactive BS. MUSCULOSKELETAL: Moves all extremities. Strength/ROM intact without gross deformities. SKIN: Warm, dry, normal color. No rashes. NEURO: A&O X3. Speech clear. Cranial nerves II-XII grossly intact. Steady gait. No ataxic movements. PSYCHIATRIC: Appropriate mood and affect. Normal interaction. Course Vital Signs Vital signs: Vital Signs Temperature 97.7 F 02/04/22 09:35 Pulse Rate 81 02/04/22 09:35 Respiratory Rate 16 02/04/22 09:35 Blood Pressure 111/74 02/04/22 09:35 Pulse Oximetry 100 02/04/22 09:35 Oxygen Delivery Room Air 02/04/22 09:35 Temperature 97.7 F 02/04/22 09:35 Pulse Rate 81 02/04/22 09:35 Respiratory Rate 16 02/04/22 09:35 Blood Pressure 111/74 02/04/22 09:35 Pulse Oximetry 100 02/04/22 09:35 Oxygen Delivery Room Air 02/04/22 09:35 MDM - Abdominal Pain MDM Narrative Medical decision making narrative: Patient presented to ED with 6-day history of abdominal pain, nausea, diarrhea, cold symptoms. Vitals stable upon arrival. Afebrile. Work-up fairly unremarkable. No leukocytosis or significant anemia. No electrolyte abnormality. Stable kidney and liver functi
[2022-02-04] MEDS: ONDANSETRON INJ 4 MG/2 ML VIAL IV PUSH (10:13)
[2022-02-04] MEDS: SODIUM CHLORIDE 0.9% IV 1,000 ML 999 ML IV CONT (10:14)
[2022-02-04 10:38] LABS: Basophils Absolute Auto 0.1 K/mm3 (0.0-0.1); Basophils Percent Auto 0.7 % (0.2-1.2); Eosinophils Absolute Auto 0.2 K/mm3 (0-0.3); Eosinophils Percent Auto 2.1 % (0-4.4); Hemoglobin 11.7 g/dL (12.0-15.0); Immature Granulocyte Absolute 0.06 K/mm3 (0.00-0.031); Immature Granulocyte Percent A 0.7 % (0-0.5); Lymphocytes Absolute Auto 2.19 K/mm3 (0.9-3.2); Lymphocytes Percent Auto 24.1 % (18.3-44.2); Mean Corpuscular HGB Conc 32.5 g/dl (32-36); Mean Corpuscular Hemoglobin 28.7 pg (26-34); Mean Corpuscular Volume 88.5 fl (80-100); Mean Platelet Volume 10.4 fl (7.4-10.4); Monocytes Absolute Auto 0.7 K/mm3 (0.1-0.6); Neutrophils Absolute Auto 5.8 K/mm3 (1.3-6.7); Neutrophils Percent Auto 64.4 % (45.5-73.1); Platelet Count Result 373 k/mm3 (150-375); Red Blood Count 4.07 M/mm3 (4.2-5.4); Red Cell Distribution Width 13.3 % (11.5-14.5); White Blood Count 9.1 K/mm3 (4.5-10.0)
[2022-02-04 10:52] LABS: Alanine Aminotransferase 20 U/L (6-35); Albumin Level 4.3 g/dL (3.5-5.1); Alkaline Phosphatase 78 U/L (38-126); Anion Gap 10 mmol/L (8-16); Aspartate Amino Transferase 21 U/L (14-36); Bilirubin,Total 0.4 mg/dL (0.2-1.3); Blood Urea Nitrogen 7 mg/dL (7-17); Carbon Dioxide 22 mmol/L (22-30); Chloride 106 mmol/L (98-107); Estimated CRCL calculation 144 ml/min; Estimated Glomerular Filt Rate > 60; Glucose 129 mg/dL (65-110); Lipase 64 U/L (23-300); Potassium 3.5 mmol/L (3.4-5.0); Sodium 138 mmol/L (137-145)
[2022-02-04 11:14] LABS: Influenza A QL RT-PCR Negative (Negative); Influenza B QL RT-PCR Negative (Negative); SARS-CoV-2 RNA PCR Negative
[2022-02-04 11:32] LABS: Appearance Urine Clear (Clear); Bilirubin Urine Negative (Negative); Blood Urine 1+ (Negative); Color Urine Yellow (Yellow); Glucose Urine UA Negative (Negative); Ketones Urine Negative (Negative); Leukocyte Esterase Ur Negative LEU/UL (Negative); Nitrate Urine Negative (Negative); Protein Urine Trace mg/dL (Negative); Specific Grav Ur 1.025 (1.001-1.035); Urobilinogen Urine 0.2 mg/dL (<2.0); pH Urine 5.5 (5.0-9.0)
[2022-02-04 11:41] LABS: Bacteria Urine Trace /hpf; Mucus Urine Few /lpf; RBC Urine 0-2 /hpf (0-2); Squamous Epithelial Cell Urine Occasional /hpf (Few); WBC Urine 0-3 /hpf
[2022-02-04 11:44] LABS: Add Urine Microscopic? YES
[2022-02-04] MEDS: DICYCLOMINE HCL 10 MG CAPSULE 20 MG PO (13:53)
[2022-02-04] MEDS: KETOROLAC 30 MG/ML VIAL (*BKC) IV PUSH (13:53)
== END 2022-02-04 14:04 | disposition home or self-care (01) ==
PROVIDERS: Physician Assistant; Emergency Provider Emergency Medicine; PCP Physician Assistant
DX: R10.84 Generalized abdominal pain (principal); J06.9 Acute upper respiratory infection, unspecified; Z20.822 Contact with and (suspected) exposure to COVID-19; E11.9 Type 2 diabetes mellitus without complications; E78.5 Hyperlipidemia, unspecified; K21.9 Gastro-esophageal reflux disease without esophagitis
CPT/HCPCS: 36415; 71046; 74177; 80053; 81001; 81025; 83690; 85025; 87636; 96361; 96365; 96375; 99284; A9270; J0131; J1885; J2405; J7030; Q9967

== ENCOUNTER 2022-04-03 12:41 | Outpatient (CLI) | payer OTHER, SELFPAY ==
--- NOTE | ~2022-04-03 | US_ITS ---
EXAMINATION: US soft tissue lower back DATE: 04/03/2022 14:28 INDICATION: Palpable masses at the bilateral lower back TECHNIQUE: Multiple grayscale and Doppler ultrasound images of the one half of the posterior lower ab dominal retroperitoneal nodes along the wall at the posterior bilateral paralumbar regions were obtai colt. COMPARISON: CT dated 02/04/2022 FINDINGS: There is a lobular appearance to the ilium because normal-appearing subcutaneous fat at the in the re gion of concern. This is subtly evident overlying the bilateral posterior iliac spines on the prior C T images. No clearly defined encapsulated lipoma. No other abnormal masses or fluid collections. IMPRESSION: 1. Somewhat lobulated appearance to the otherwise normal subcutaneous fat at the bilateral paralumbar regions of concern with no discrete lipomas or other abnormal masses or fluid collections. Reviewed, dictated and finalized at location A. 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 Somewhat lobulated appearance to the otherwise normal subcutaneous fat at th e bilateral paralumbar regions of concern with no discrete lipomas or other abn ormal masses or fluid collections.
== END 2022-04-03 12:42 | disposition home or self-care (01) ==
LOC: ANHIMG 12:46
PROVIDERS: PCP Physician Assistant; Visit Provider Physician Assistant
DX: R22.2 Localized swelling, mass and lump, trunk (principal)
CPT/HCPCS: 76705

== ENCOUNTER 2022-04-28 21:53 | Emergency (ER) | payer OTHER, SELFPAY ==
[2022-04-28 21:56] VITALS: BP 122/75; PULSE 84; RESP 20; TEMP 36.8; O2SAT 100
--- NOTE | 2022-04-29 00:30 | PC.NURSE ---
no answer at triage
== END 2022-04-29 00:30 | disposition left against medical advice (07) ==
PROVIDERS: PCP Physician Assistant
DX: K08.89 Other specified disorders of teeth and supporting structures (principal)
CPT/HCPCS: 99199

== ENCOUNTER 2022-07-29 11:56 | Emergency (ER) | payer OTHER, SELFPAY ==
[2022-07-29 12:00] VITALS: BP 127/90; PULSE 87; RESP 18; TEMP 36.6; O2SAT 100
--- NOTE | 2022-07-29 12:35 | ED.LOWEXIN ---
HPI - Extremity Injury (Lower) General Chief Complaint: Extremity Injury, Lower Stated Complaint: toe infection Time Seen by Provider: 07/29/22 12:12 History of Present Illness HPI Narrative: 37-year-old Samoan-speaking patient presented to the emergency room for evaluation of pain to her left great toe. Patient states she recently had a pedicure, and noticed pain and swelling around her great toenail. Patient states she has not been soaking the toe. Has noticed some purulent drainage. Related Data Home Medications Medication Instructions Recorded Confirmed azithromycin 500 mg tablet 500 mg PO DAILY 05/16/20 04/24/22 simvastatin 20 mg tablet 20 mg PO DAILY 10/13/21 04/24/22 Allergies Allergy/AdvReac Type Severity Reaction Status Date / Time Penicillins Allergy Rash Verified 04/24/22 08:45 Review of Systems Review of Systems: CONSTITUTIONAL: Denies fever, chills, or sweats. EYES: Denies visual changes, redness, or discharge. ENT: Denies rhinorrhea, congestion, sore throat, or otalgia. CARDIOVASCULAR: Denies chest pain, palpitations, or edema. RESPIRATORY: Denies cough or dyspnea. GASTROINTESTINAL: Denies abdominal pain, nausea, vomiting, or diarrhea. GENITOURINARY: Denies dysuria or hematuria. SKIN: Denies rash or itching. MUSCULOSKELETAL: Denies back pain, joint pain, or myalgia. NEUROLOGIC: Denies headache, numbness, dizziness, or weakness. PSYCHIATRIC: Denies anxiety or depression. PMFSH Past Medical History Medical History Diabetes mellitus Dyslipidemia GERD (gastroesophageal reflux disease) Surgical History Surgical History No pertinent past surgical history Social History Social History Smoking status: Never smoker Gender identity (if verbalized by the patient): Female Exam Narrative: GENERAL: Well-appearing, well-nourished, no physical limitations, and in no acute distress. HEAD: Normocephalic, atraumatic. EYES: Conjunctivae normal, PERRLA and EOMI. CHEST: Clear to auscultation. No respiratory distress. No wheezes rales or rhonchi. HEART: Regular rate and rhythm. No murmur heard. Normal peripheral pulses. EXTREMITIES: Normal range of motion. No edema. No clubbing or cyanosis SKIN: Warm, dry, no rash. No noted wounds. Right great toe: Erythema, soft tissue swelling and scant amount of purulent drainage noted to the medial and proximal nail fold. No lymphangitic spread NEURO: No focal deficits. Alert and oriented x3. MAEW. CN's II-XI intact bilaterally, normal gait PSYCH: Cooperative. Normal mood and affect. Course Vital Signs Vital signs: Vital Signs Temperature 36.6 C 07/29/22 12:00 Pulse Rate 87 07/29/22 12:00 Respiratory Rate 18 07/29/22 12:00 Blood Pressure 127/90 07/29/22 12:00 Pulse Oximetry 100 07/29/22 12:00 Oxygen Delivery Room Air 07/29/22 12:00 Temperature 36.6 C 07/29/22 12:00 Pulse Rate 87 07/29/22 12:00 Respiratory Rate 18 07/29/22 12:00 Blood Pressure 127/90 07/29/22 12:00 Pulse Oximetry 100 07/29/22 12:00 Oxygen Delivery Room Air 07/29/22 12:00 Discharge Plan Discharge Clinical Impression: Paronychia due to ingrown nail Patient Disposition: Home, Self-Care Condition: Stable Instructions: Antibiotic Form Prescriptions: New sulfamethoxazole-trimethoprim [Bactrim DS] 800-160 mg tablet 1 tablet PO Q12H 10 Days Qty: 20 0RF No Action simvastatin 20 mg tablet 20 mg PO DAILY azithromycin 500 mg Tablet 500 mg PO DAILY benzonatate 200 mg capsule 200 mg PO TID PRN (Reason: cough) Qty: 20 0RF ondansetron 4 mg tablet,disintegrating 4 mg PO Q8H PRN (Reason: nausea and vomiting) Qty: 20 0RF dicyclomine 20 mg tablet 20 mg PO TID PRN (Reason: Abdominal Discomfort) Qty: 15 0RF ibuprofen 600 mg tablet
== END 2022-07-29 12:57 | disposition home or self-care (01) ==
PROVIDERS: Emergency Provider Nurse Practitioner Family; PCP Physician Assistant
DX: L60.0 Ingrowing nail (principal); L03.032 Cellulitis of left toe; E11.9 Type 2 diabetes mellitus without complications; E78.5 Hyperlipidemia, unspecified; K21.9 Gastro-esophageal reflux disease without esophagitis
CPT/HCPCS: 99283

== ENCOUNTER 2022-12-08 12:00 | Emergency (ER) | payer OTHER, SELFPAY ==
[2022-12-08 12:10] VITALS: BP 117/81; PULSE 87; RESP 16; TEMP 36.4; O2SAT 100
[2022-12-08] MEDS: LACTATED RINGERS 1,000 ML 999 ML IV CONT ×2 (18:07→19:10)
[2022-12-08 18:10] LABS: Basophils Absolute Auto 0.1 K/mm3 (0.0-0.1); Basophils Percent Auto 0.7 % (0.2-1.2); Eosinophils Absolute Auto 0.2 K/mm3 (0-0.3); Eosinophils Percent Auto 1.8 % (0-4.4); Hematocrit 39.6 % (37.0-47.0); Immature Granulocyte Absolute 0.03 K/mm3 (0.00-0.031); Immature Granulocyte Percent A 0.3 % (0-0.5); Lymphocytes Absolute Auto 3.02 K/mm3 (0.9-3.2); Lymphocytes Percent Auto 31.6 % (18.3-44.2); Mean Corpuscular HGB Conc 32.8 g/dl (32-36); Mean Corpuscular Hemoglobin 28.1 pg (26-34); Mean Corpuscular Volume 85.7 fl (80-100); Mean Platelet Volume 10.9 fl (7.4-10.4); Monocytes Absolute Auto 0.6 K/mm3 (0.1-0.6); Monocytes Percent Auto 6.6 % (2.6-8.5); Neutrophils Absolute Auto 5.6 K/mm3 (1.3-6.7); Platelet Count Result 315 k/mm3 (150-375); Red Blood Count 4.62 M/mm3 (4.2-5.4); Red Cell Distribution Width 13.4 % (11.5-14.5); White Blood Count 9.6 K/mm3 (4.5-10.0)
[2022-12-08 18:19] LABS: Appearance Urine Cloudy (Clear); Bacteria Urine None Seen /hpf; Bilirubin Urine Negative (Negative); Blood Urine 1+ (Negative); Color Urine Yellow (Yellow); Glucose Urine UA Negative (Negative); Ketones Urine 2+ mg/dL (Negative); Leukocyte Esterase Ur Negative LEU/UL (Negative); Nitrate Urine Negative (Negative); Non Pathogenic Casts 0-2; Protein Urine Negative (Negative); RBC Urine 0-2 /hpf (0-2); Specific Grav Ur 1.021 (1.001-1.035); Squamous Epithelial Cell Urine Occasional /hpf (Few); Urobilinogen Urine 0.2 mg/dL (<2.0); WBC Urine 0-5 /hpf; pH Urine 5.5 (5.0-9.0)
[2022-12-08 18:22] LABS: Add Urine Microscopic? YES
[2022-12-08 18:24] LABS: Alanine Aminotransferase 19 U/L (6-35); Albumin Level 4.8 g/dL (3.5-5.1); Alkaline Phosphatase 61 U/L (38-126); Anion Gap 8 mmol/L (8-16); Aspartate Amino Transferase 25 U/L (14-36); Bilirubin,Total 0.8 mg/dL (0.2-1.3); Blood Urea Nitrogen 8 mg/dL (7-17); Calcium 9.9 mg/dL (8.4-10.2); Carbon Dioxide 29 mmol/L (22-30); Chloride 100 mmol/L (98-107); Estimated CRCL calculation 134 ml/min; Estimated Glomerular Filt Rate > 60; Glucose 84 mg/dL (65-110); Lipase 90 U/L (23-300); Potassium 3.9 mmol/L (3.4-5.0); Sodium 137 mmol/L (137-145)
[2022-12-08] MEDS: PANTOPRAZOLE SODIUM IV 40 MG VIAL IV PUSH (19:09)
[2022-12-08] MEDS: ONDANSETRON INJ 4 MG/2 ML VIAL IV PUSH (19:10)
[2022-12-08 19:15] VITALS: BP 116/79; PULSE 77; RESP 15; O2SAT 100
--- NOTE | 2022-12-08 19:31 | ED.NAVMDI ---
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 PAtient states 15 days ago she develop nonbloody diarrhea and vomiting. She reports diarrhea seems worse yesterday but she only had 2 episodes today. She has not had diarrhea since this morning. She also reports emesis x 1 today. She has intermittent upper abdominal cramping but denies pain now. She denies fever, chills, recent antibiotic use or recent travel. She does reports 2 people in her household with similar symptoms. She also reports today her throat is bothering her. Related Data Home Medications Medication Instructions Recorded Confirmed simvastatin 20 mg tablet 20 mg PO DAILY 10/13/21 11/06/22 Allergies Allergy/AdvReac Type Severity Reaction Status Date / Time Penicillins Allergy Rash Verified 12/08/22 12:15 Review of Systems Constitutional: Constitutional: Denies weakness Cardiovascular: Cardiovascular: Denies syncope, Denies rapid heart rate, Denies irregular heart rhythm, Denies leg edema and Denies dyspnea Respiratory: Respiratory: Denies chest congestion, Denies hemoptysis, Denies excessive phlegm production and Denies dyspnea Gastrointestinal: Gastrointestinal: Reports abdominal pain, Reports bloating, Denies hematochezia, Reports diarrhea, Reports nausea and Reports vomiting Genitourinary: Genitourinary: Denies hematuria and Denies dysuria Musculoskeletal: Musculoskeletal: Denies joint swelling, Denies loss of height and Denies muscle weakness Neurologic: Denies syncope, Denies focal weakness and Denies weakness PMFSH Past Medical History Medical History Diabetes mellitus Dyslipidemia GERD (gastroesophageal reflux disease) Surgical History Surgical History No pertinent past surgical history Social History Social History Smoking status: Never smoker Gender identity (if verbalized by the patient): Female Exam Const: General: no acute distress and alert Nutritional Appearance: well nourished Orientation/consciousness: patient oriented x3 HENMT: Head: normal to inspection Face and sinus: normal facial exam Mouth: Yes Normal oral and palatal mucosa present, Yes lip normal and Yes moist mucous membranes Throat: posterior oropharynx normal and uvula midline Eyes: EOM: EOMs intact bilaterally Neck: Neck: normal visual inspection Chest: Chest palpation & inspection: normal inspection of the chest Resp: Effort & Inspection: normal respiratory effort Auscultation: clear to auscultation bilaterally Cardio: Rate: regular rate Rhythm: regular rhythm Heart sounds: no murmurs GI: GI Palp: Yes Soft to palpation, No Tenderness to palpation present (GI), No Guarding due to palpation present (GI) and No Rigid due to palpation Auscultation: normal bowel sounds Skin: General skin exam: normal color Rashes: no rashes Wounds: no wounds Neuro: General: patient oriented x3, moves all extremities and CN's II-XI intact bilaterally Extrem: General: normal to inspection Psych: Mental Status: mental status grossly normal Affect: normal affect Attitude: cooperative Course Reevaluation(s) Reevaluation #1: PAtient feels better. She was able to tolerate PO. No vomiting. She drank juice and ate crackers. no diarrhea in ER. She has benign abdominal exam so no CT scan. Date: 12/08/22 Time: 20:49 Vital Signs Vital signs: Vital Signs Temperature 97.6 F
[2022-12-08 19:38] LABS: Influenza A QL RT-PCR Negative (Negative); Influenza B QL RT-PCR Negative (Negative); SARS-CoV-2 RNA PCR Negative (Negative)
[2022-12-08 20:14] VITALS: BP 116/88; PULSE 73
[2022-12-08 20:15] VITALS: BP 119/85; PULSE 74
[2022-12-08 20:16] VITALS: BP 119/96; PULSE 74
[2022-12-08 21:10] VITALS: BP 103/92; PULSE 70; RESP 17; O2SAT 99
== END 2022-12-08 21:11 | disposition home or self-care (01) ==
PROVIDERS: Emergency Provider General Practice; PCP Physician Assistant
DX: K52.9 Noninfective gastroenteritis and colitis, unspecified (principal); E11.9 Type 2 diabetes mellitus without complications; E78.5 Hyperlipidemia, unspecified; Z20.822 Contact with and (suspected) exposure to COVID-19
CPT/HCPCS: 36415; 80053; 81001; 81025; 83690; 85025; 87636; 96361; 96374; 96375; 99284; C9113; J2405; J7120

== ENCOUNTER 2023-01-20 02:03 | Day surgery (SDC) | payer OTHER, SELFPAY ==
[2023-01-13 11:20] VITALS: BMI 32.0
[2023-01-20 09:23] VITALS: BP 103/68; PULSE 81; RESP 18; TEMP 36.3; O2SAT 100; BMI 32.2
--- NOTE | 2023-01-20 09:26 | SUR.PREOP ---
chris used for spanisher. styrene dehydration reactor operator [id number]. patient voiced understanding of procedure. kosovan consent signed.
--- NOTE | 2023-01-20 09:33 | WPDANESEPPF ---
Anes - Initial Pre Proc Eval Procedure: Operation Date: 01/20/23 10:00 Proposed Procedures p Esophagogastroduodenoscopy - Vishal Verma MD Date/Time: 01/20/23 09:33 Surgeon: Vishal Verma MD Pre Op Diagnosis: nausea with vomiting unspecified Patient Data Age: 37 Gender: F Height: 1.57 m Weight: 79.9 kg Last Vital Signs Temp 97.4 F L 01/20/23 09:23 Pulse 81 01/20/23 09:23 Resp 18 01/20/23 09:23 BP 103/68 01/20/23 09:23 Pulse Ox 100 01/20/23 09:23 O2 Del Method Room Air 01/20/23 09:23 Allergies Allergy/AdvReac Type Severity Reaction Status Date / Time Penicillins Allergy Rash Verified 01/20/23 09:20 Home Medications Medication Instructions Recorded Confirmed Type acetaminophen 500 mg tablet 1,000 mg PO QID PRN pain #60 tabs 12/19/19 01/20/23 Rx ibuprofen 600 mg tablet 600 mg PO QID PRN pain #30 tabs 12/19/19 01/20/23 Rx naproxen 500 mg tablet 500 mg PO BID PRN pain #20 tabs 01/28/21 01/20/23 Rx simvastatin 20 mg tablet 20 mg PO DAILY 10/13/21 01/20/23 History omeprazole 20 mg capsule,delayed 20 mg PO DAILY 1 month #30 caps 01/11/23 01/20/23 Rx release Patient hx anesthesia problems: none Family hx anesthesia problems: none Results Review: All pre-operative results and documents have been reviewed as part of the pre-operative evaluation. [facility] Past Medical History Medical History (Updated 01/11/23 @ 15:10 by ANNALISA Musa) Diabetes mellitus Dyslipidemia GERD (gastroesophageal reflux disease) Nausea and vomiting Surgical History Surgical History No pertinent past surgical history Social History Social History Smoking status: Never smoker Alcohol intake: unknown Substance use: unknown Substance use type: unknown Living arrangements: with friend(s) Gender identity (if verbalized by the patient): Female Spiritual care concerns: No Anes - Eval Final PreProcedure Day of Procedure 01/20/23 09:33 Patient weight: normal Heart: regular rate and rhythm Lungs: clear to auscultation Airway: Mallampati scale class II Neurological: alert and oriented Last oral intake: >/= 8 hours ASA classification: II Emergent: no Anesthetic plan: proceed Anesthesia type and monitoring: general GIVS and standard monitoring Results Review: All pre-operative results and documents have been reviewed as part of the pre-operative evaluation. Informed Consent: The patient's anesthetic plan and its attendant risks and benefits were discussed with the patient/family/POA. Questions were solicited and answers provided to the satisfaction of the patient/family/POA.
[2023-01-20] MEDS: LACTATED RINGERS 1,000 ML 150 ML IV CONT (09:35)
--- NOTE | 2023-01-20 09:58 | WPDHPUPDATE1 ---
History and Physical Update Update Date/Time: 01/20/23 09:58 History and Physical has been reviewed, including an updated exam of the patient. There are NO changes in the patient's condition. Risks, benefits, and alternatives have been discussed and questions answered. Patient agrees to proceed with procedure.
[2023-01-20 10:14] VITALS: BP 98/64; PULSE 104; RESP 22; O2SAT 95
[2023-01-20 10:24] VITALS: BP 110/74; PULSE 95; RESP 20; O2SAT 99
[2023-01-20 10:34] VITALS: BP 108/79; PULSE 84; RESP 16; O2SAT 100
--- NOTE | 2023-01-20 10:44 | SUR.PHASEII ---
1035: DISCHARGE INSTRUCTION GIVEN PER JAG #[id number] IN [place], DR TRAVIS ALSO SPOKE WITH PT IN [place] AFTER PROCEDURE AND ANSWERED PT'S QUESTIONS.
== END 2023-01-20 10:48 | disposition home or self-care (01) ==
PROVIDERS: PCP Physician Assistant; Visit Provider Internal Medicine Gastroenterology
PROC: 0DJ08ZZ Inspection of Upper Intestinal Tract, Via Natural or Artificial Opening Endoscopic (ICD-10-PCS; CPT 43235; principal; 2023-01-20 10:00)
DX: K29.50 Unspecified chronic gastritis without bleeding (principal); B96.81 Helicobacter pylori [H. pylori] as the cause of diseases classified elsewhere; K21.9 Gastro-esophageal reflux disease without esophagitis; E11.9 Type 2 diabetes mellitus without complications; E78.5 Hyperlipidemia, unspecified
CPT/HCPCS: 43239; 88305; J2001; J2704; J7120

== ENCOUNTER 2023-02-09 09:45 | Outpatient (CLI) | payer OTHER, SELFPAY ==
--- NOTE | ~2023-02-09 | NM_ITS ---
EXAM: NM gastric emptying study DATE: 02/09/2023 14:55 INDICATION: Nausea and vomiting, unspecified. TECHNIQUE: A gastric emptying study was performed using the methodology of Alex CHERRY, et al. J Nucl Med 2007; 48:568-572. The patient was given a meal consisting of 2 scrambled eggs labeled with 0.981 mCi Tc-99m sulfur colloid, 2 slices of toast, two packages of jam, and approximately 120 mL of water . Simultaneous anterior and posterior 1-min images of the abdomen were obtained with the patient supi ne at multiple time points over a total period of 4 hours. The geometric mean of anterior and posteri or views was determined, and the percentage retention was calculated for each time point. COMPARISON: CT abdomen and pelvis 02/04/2022 FINDINGS: Gastric retention of the radiotracer-labeled meal was 61%, 54%, and 29% at the 1-hour, 2-h our, and 4-hour time points, respectively. With this technique, apparent rapid gastric emptying is barroso ggested by <30% gastric retention at 1 hour. Delayed gastric emptying is defined by gastric retention of >90% at 1 hour, >60% retention at 2 hours, or >10% retention at 4 hours. IMPRESSION: 1. Delayed gastric emptying. Reviewed, dictated and finalized at location E. [facility]
== END 2023-02-09 09:46 | disposition home or self-care (01) ==
PROVIDERS: PCP Physician Assistant; Visit Provider Internal Medicine Gastroenterology
DX: E11.9 Type 2 diabetes mellitus without complications (principal); K21.9 Gastro-esophageal reflux disease without esophagitis; R11.2 Nausea with vomiting, unspecified
CPT/HCPCS: 78264; A9541

== ENCOUNTER 2023-06-08 08:42 | Outpatient (CLI) | payer OTHER, SELFPAY ==
[2023-06-08 09:43] LABS: Alanine Aminotransferase 14 U/L (6-35); Albumin Level 4.5 g/dL (3.5-5.1); Alkaline Phosphatase 70 U/L (38-126); Anion Gap 6 mmol/L (8-16); Aspartate Amino Transferase 21 U/L (14-36); Bilirubin,Total 0.3 mg/dL (0.2-1.3); Blood Urea Nitrogen 8 mg/dL (7-17); Calcium 9.6 mg/dL (8.4-10.2); Carbon Dioxide 26 mmol/L (22-30); Chloride 106 mmol/L (98-107); Cholesterol 159 mg/dL (0-200); Estimated Glomerular Filt Rate > 60; Glucose 102 mg/dL (65-110); HDL Direct 37 mg/dL; Potassium 4.2 mmol/L (3.4-5.0); Sodium 138 mmol/L (137-145); Triglycerides 233 mg/dL (<150)
[2023-06-08 09:53] LABS: LDL Cholesterol Direct 93 mg/dL
== END 2023-06-08 08:43 | disposition home or self-care (01) ==
LOC: ANHLAB 08:44
PROVIDERS: PCP Physician Assistant; Visit Provider Internal Medicine Cardiovascular Disease
DX: E78.5 Hyperlipidemia, unspecified (principal)
CPT/HCPCS: 36415; 80053; 80061

== ENCOUNTER 2024-01-13 11:05 | Outpatient (CLI) | payer OTHER, SELFPAY ==
[2024-01-13 11:46] LABS: Alanine Aminotransferase 12 U/L (6-35); Albumin Level 4.3 g/dL (3.5-5.1); Alkaline Phosphatase 70 U/L (38-126); Anion Gap 9 mmol/L (4-12); Aspartate Amino Transferase 18 U/L (14-36); Bilirubin,Total 0.3 mg/dL (0.2-1.3); Blood Urea Nitrogen 8 mg/dL (7-17); Calcium 8.8 mg/dL (8.4-10.2); Carbon Dioxide 26 mmol/L (22-30); Chloride 103 mmol/L (98-107); Cholesterol 173 mg/dL (0-200); Estimated Glomerular Filt Rate > 60; Glucose 100 mg/dL (65-110); HDL Direct 34 mg/dL; Potassium 3.9 mmol/L (3.4-5.0); Sodium 138 mmol/L (137-145); Triglycerides 394 mg/dL (<150)
[2024-01-13 11:57] LABS: LDL Cholesterol Direct 77 mg/dL
== END 2024-01-13 11:06 | disposition home or self-care (01) ==
LOC: ANHLAB 11:07
PROVIDERS: PCP Physician Assistant; Visit Provider Internal Medicine Cardiovascular Disease
DX: E78.5 Hyperlipidemia, unspecified (principal)
CPT/HCPCS: 36415; 80053; 80061

== ENCOUNTER 2024-01-13 11:28 | Outpatient (CLI) | payer OTHER, SELFPAY ==
--- NOTE | ~2024-01-13 | XR_ITS ---
XR knee RT 3V Ordering provider: Linda Duffy, PA History: . pain of bi knee joints . Comparison: None. FINDINGS: BONES: No acute fracture or dislocation. JOINT SPACES: Normal. SOFT TISSUES: Normal. IMPRESSION: No acute osseous abnormality right knee. Reviewed, dictated and finalized at location A.
--- NOTE | ~2024-01-13 | XR_ITS ---
XR knee LT 3V 01/13/2024 11:52 Indication: Left knee pain Procedure: 3 views left knee Comparison: No prior studies for comparison. Findings: There is anatomic alignment. Mild patellofemoral compartment osteoarthritis. No fracture, s ubluxation or dislocation. No joint effusion. Impression: 1: Mild patellofemoral compartment osteoarthritis. Reviewed, dictated and finalized at location B. Impression: 1: Mild patellofemoral compartment osteoarthritis.
== END 2024-01-13 11:29 | disposition home or self-care (01) ==
PROVIDERS: PCP Physician Assistant; Visit Provider Physician Assistant
DX: M25.561 Pain in right knee (principal); M17.12 Unilateral primary osteoarthritis, left knee
CPT/HCPCS: 73562

== ENCOUNTER 2024-11-10 08:23 | Outpatient (CLI) | payer OTHER, SELFPAY ==
[2024-11-10 09:01] LABS: Alanine Aminotransferase 17 U/L (6-35); Albumin Level 4.2 g/dL (3.5-5.1); Alkaline Phosphatase 59 U/L (38-126); Anion Gap 7 mmol/L (4-12); Aspartate Amino Transferase 25 U/L (14-36); Bilirubin,Total 0.3 mg/dL (0.2-1.3); Blood Urea Nitrogen 9 mg/dL (7-17); Calcium 9.1 mg/dL (8.4-10.2); Carbon Dioxide 25 mmol/L (22-30); Chloride 105 mmol/L (98-107); Cholesterol 156 mg/dL (0-200); Estimated Glomerular Filt Rate > 60; Glucose 104 mg/dL (65-110); HDL Direct 29 mg/dL; Potassium 4.0 mmol/L (3.4-5.0); Sodium 137 mmol/L (137-145); Total Protein 7.3 g/dL (6.3-8.2); Triglycerides 468 mg/dL (<150)
== END 2024-11-10 08:24 | disposition home or self-care (01) ==
LOC: ANHLAB 08:24
PROVIDERS: PCP Physician Assistant; Visit Provider Internal Medicine Cardiovascular Disease
DX: E78.5 Hyperlipidemia, unspecified (principal)
CPT/HCPCS: 36415; 80053; 80061

== ENCOUNTER 2025-01-19 17:17 | Emergency (ER) | payer OTHER, SELFPAY ==
--- NOTE | ~2025-01-19 | XR_ITS ---
EXAMINATION: [id number], XR shoulder RT min 2V DATE: 01/19/2025 18:13 INDICATION: Right shoulder and posterior right upper rib pain post injury TECHNIQUE: 1. 3 views of the right ribs were obtained. 2. AP internally rotated, AP externally rotated, Grashey and axillary views of the right shoulder were obtained. COMPARISON: None FINDINGS: Right shoulder: Alignment is normal. No fracture. Right acromioclavicular and glenohumeral joint spaces are normal. Chest and right ribs: No rib fractures identified. As are clear with no focal airspace opacities, pulmonary edema, pleural effusion or pneumothorax. Heart size is normal. 2.5 x 1.5 cm calcified mass at the right breast. IMPRESSION: 1. No rib fracture or acute cardiopulmonary disease. 2. Normal right shoulder. 3. 2.5 x 1.5 cm calcified mass at the right breast. Correlate with mammography. Reviewed, dictated and finalized at location A. IMPRESSION: 1. No rib fracture or acute cardiopulmonary disease. 2. Normal right shoulder. 3. 2.5 x 1.5 cm calcified mass at the right breast. Correlate with mammography.
--- OUTSIDE RECORDS SUMMARY | 2025-01-19 17:29 | XMS_ITS | Clinical Summary ---
Author Organization [facility] Address [facility] [place] [address] Care Team Providers Care Front Line Leader Name Role Phone Eugene Contreras DO Primary Care Provider [phone] Allergies Active Allergy Reactions Criticality Noted Date Comments Penicillins Rash Low 12/04/2024 Medications dulaglutide (TRULICITY) 3 MG/0.5ML injection Inject 3 mg into the skin once a week. Active pravastatin (PRAVACHOL) 10 MG tablet Take 1 tablet (10 mg total) by mouth nightly at bedtime. Active fish oil (OMEGA-3 FATTY ACID) 1000 MG Cap capsule Take 1 capsule (1,000 mg total) by mouth 2 (two) times daily. Active fenofibrate 160 MG tablet Take 1 tablet (160 mg total) by mouth daily. 12/29/19 25 Discontinue d(Discontin ued by another clinician) Active Problems Problem Noted Date Diagnosed Date Varicose veins of bilateral lower extremities wi th pain 12/28/2024 Transportation insecurity 03/13/2024 DM type 2 with diabetic mixed hyperlipidemia History of female sterilization 04/06/2020 Encounters Date Type Department Care Team Description 01/10/2025 11:00 AM CDT - 01/10/2025 11:59 PM CDT Hospital Encounter [facility] [place] [address] Gurpreet Peter MD Discharge Disposition: Home or Self Care (Routine Discharge) 01/10/2025 Travel 12/28/2024 11:00 AM CDT Office Visit [facility], [address] [place] [address] Gurpreet Peter MD Varicose Veins 12/28/2024 Orders Only [facility], [facility] [address] [place] [address] Gurpreet Peter MD 12/28/2024 Travel 12/04/2024 Orders Only [facility], [facility] [address] [place] [address] Dione Garcia MA 12/01/2024 Scan [facility], [facility] [address] [place] [address] Scanned, Doc Pccl from Last 3 Months Immunizations Immunization Administration Dates Next Due Hepatitis B (Generic: Adult) 11/19/2023 Hepatitis B Vac Recomb Adj 20 Mcg/0.5ml Im Sosy 10/20/2023 MMR (MMRII) 10/21/2023 Pneumococcal (Prevnar 20) 02/25/2022 Polio IPV (Ipol) 10/21/2023 Tdap (Generic) 10/20/2023,01/13/2023 Varicella (Varivax) 11/19/2023,10/21/2023 Social History Tobacco Use Types Packs/Day Years Used Date Smoking Tobacco: Never Tobacco Cessation:Counseling Given: Not Answered Comments Unknown Sex and Gender Information Value Date Recorded Sex Assigned at Female 12/28/2024 11:37 AM CDT Legal Sex Female 11:03 AM CDT Gender Identity Not on file Sexual Orientation Not on file Last Filed Vital Signs Vital Sign Reading Time Taken Comments Blood Pressure 136/70 12/28/2024 11:49 AM CDT Pulse 76 12/28/2024 11:49 AM CDT Temperature - - Respiratory Rate - - Oxygen Saturation - - Inhaled Oxygen Concentration - - Weight 81.8 kg (180 lb 6.4 oz) 12/28/2024 11:49 AM CDT Height 160 cm (5' 3) 12/28/2024 11:49 AM CDT Body Mass Index 31.96 12/28/2024 11:49 AM CDT Plan of Treatment Health Maintenance Due Date Last Done Comments Cervical Cancer Screening Pap Smear (Age 30 to 64) Every 3 Years 1987 Kidney Health Evaluation 1987 Hemoglobin A1C 1987 Lipid Panel 1987 Annual Physical 05/27/1990 Diabetes: Retinopathy Eye Exam 05/27/2005 Hepatitis C 05/27/2005 HPV Vaccines (1 - 3-dose SCDM series) 05/27/2014 Cervical Cancer Screening Pap with HPV Testing (Age 30 to 64) Every 5 Years 05/27/2017 Cervical Cancer Screening with HPV 05/27/2017 Hepatitis B Vaccines (3 of 3 - 19+ 3-dose series) 04/21/2024 11/19/2023, 10/20/2023 COVID-19 Vaccine ( - 2024- season) 2024 10/21/2023, 03/29/2021, 09/24/2020, Additional history exists Influenza Adult (#1) 2024 DTaP, Tdap and Td Vaccines (3 - Td or Tdap) 10/19/2033 10/20/2023, 01/13/2023 Pneumococcal Vaccine: Pediatrics (0 to 5 Years) and At-Risk Patients (6 to 49 Years) Completed 02/25/2022 Hepatitis A Vaccines Aged Out No long er eligible based on patient's age to complete this topic Meningococcal B Vaccine Aged Out No l onger eligible based on patient's age to complete this topic Meningococcal Vaccine Aged Out No tracey surekha eligible based on patient's age to complete this topic RSV Immunizations Under 20 Months Aged Out No longer eligible based on patient's age to complete this topic Procedures Procedure Name Priority Date/Time Associated Diagnosis Comments USV VENOUS REFLUX LOW DESTINI Routine 01/10/2025 12:50 PM CDT Varicose veins of lower extremity with pain, bilateral from Last 3 Months Results * USV VENOUS REFLUX LOW DESTINI (01/10/2025 12:50 PM CDT) Anatomical Region Laterality Modality Extremity Vascular Ultraso und 01/10/2025 11:2 1 AM CDT Narrative 01/10/2025 3:38 PM CDT VENOUS DUPLEX IMAGING BILATERAL LOWER EXTREMITY VASCULAR LAB Pat.Name: CHENG ABRAMS Pat.ID: [id number] St.Date: 01/10/2025 Refer.MD: Eugene Contreras Exam Time: 11:21:00 AM Study Type:TESSA VS Venous Duplex Legs DESTINI Age: 5 1985,39Y Sex: F Sonogrphr: Rosalio Mast RVT Pat. Stat.:Outpatient History / Clinical:Varicose veins of lower extremity with pain per ordering provider Procedures: Cao scale, Color Doppler imaging, Doppler Spectral Analysis Race: O ++++++++++++++++++++++++++++++++++++ SUMMARY: ++++++++++++++++++++++++++++++++++++ The deep veins are patent bilaterally from groin to calf. Presence of reflux > 1 second duration is seen in the bilateral great saphenous veins. Reflux measurements obtained with patient supine in steep reverse Trendelenberg. Unable to visualize left great saphenous vein below mid thigh. CONCLUSION: Venous valvular insufficiency in the bilateral great saphenous veins. ++++++++++++++++++++++++++++++++++++ MEASUREMENTS: ++++++++++++++++++++++++++++++++++++ REFLUX Right CFV CFV 0 sec Right Mid FV Mid FV 0 sec Right Pop V Pop V 0 sec Right SFJ GSV SFJ 5.8 mm GSV SFJ 0 sec Right Prox Thigh GSV Prox Thigh 2.5 mm GSV Prox Thigh 9.1 sec Right Dist Thigh/AK GSV Dist Thigh 3 mm GSV Dist Thigh 0 sec Right Prox SSV Prox 2.2 mm SSV Prox 0 sec Right Prox Calf GSV Prox Calf 2.2 mm GSV Prox Calf 14.6 sec Left CFV CFV 0 sec Left Mid FV Mid FV 0 sec Left SFJ GSV SFJ 6.3 mm GSV SFJ 15.1 sec Left Prox Thigh GSV Prox Thigh 4.3 mm GSV Prox Thigh 14 sec Left Mid Thigh GSV Mid Thigh 5.8 mm Left Prox SSV Prox 2.6 mm SSV Prox 0 sec <Electronic Signature> 01/10/2025 03:38 PM Gurpreet Peter M.D. Procedure Note Gurpreet Peter MD - 01/10/2025 VENOUS DUPLEX IMAGING BILATERAL LOWER EXTREMITY VASCULAR LAB Pat.Name: CHENG ABRAMS Pat.ID: [id number] .Date: 01/10/2025 Refer.MD: Eugene Contreras Exam Time: 11:21:00 AM Study Type:TESSA VS Venous Duplex Legs DESTINI Age: 5 1985,39Y Sex: F Sonogrphr: Rosalio Mast RVT Pat. Stat.:Outpatient History / Clinical:Varicose veins of lower extremity with pain per ordering provider Procedures: Cao scale, Color Doppler imaging, Doppler Spectral Analysis Race: O ++++++++++++++++++++++++++++++++++++ SUMMARY: ++++++++++++++++++++++++++++++++++++ The deep veins are patent bilaterally from groin to calf. Presence of reflux > 1 second duration is seen in the bilateral great saphenous veins. Reflux measurements obtained with patient supine in steep reverse Trendelenberg. Unable to visualize left great saphenous vein below mid thigh. CONCLUSION: Venous valvular insufficiency in the bilateral great saphenous veins. ++++++++++++++++++++++++++++++++++++ MEASUREMENTS: ++++++++++++++++++++++++++++++++++++ REFLUX Right CFV CFV 0 sec Right Mid FV Mid FV 0 sec Right Pop V Pop V 0 sec Right SFJ GSV SFJ 5.8 mm GSV SFJ 0 sec Right Prox Thigh GSV Prox Thigh 2.5 mm GSV Prox Thigh 9.1 sec Right Dist Thigh/AK GSV Dist Thigh 3 mm GSV Dist Thigh 0 sec Right Prox SSV Prox 2.2 mm SSV Prox 0 sec Right Prox Calf GSV Prox Calf 2.2 mm GSV Prox Calf 14.6 sec Left CFV CFV 0 sec Left Mid FV Mid FV 0 sec Left SFJ GSV SFJ 6.3 mm GSV SFJ 15.1 sec Left Prox Thigh GSV Prox Thigh 4.3 mm GSV Prox Thigh 14 sec Left Mid Thigh GSV Mid Thigh 5.8 mm Left Prox SSV Prox 2.6 mm SSV Prox 0 sec <Electronic Signature> 01/10/2025 03:38 PM Gurpreet Peter M.D. Gurpreet Peter MD VASC Final Result from Last 3 Months Insurance [employer] Care Teams Front Line Leader Relationship Specialty Start Date End Date Eugene Contreras DO [address] [place] [address] PCP - General INTERNAL MEDICINE 12/04/24
[2025-01-19 17:39] VITALS: BP 128/85; PULSE 88; RESP 18; TEMP 36.4; O2SAT 100
--- NOTE | 2025-01-19 17:55 | ED_ITS ---
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 Patient said injury occurred while she was at work. Patient was stacking objects up when she went to turn her right side and accidentally hit her right upper back on a structural pole. Patient denies hitting her head, loss of consciousness, neck pain, or low back pain. Patient does report right upper back right shoulder hurts, right shoulder hurts with certain movements. Patient denies any significant past medical history. Patient is a numbness, tingling, chest pain, breathing problems, fevers, or any other symptoms. Patient reports having a soft tissue injury to her right upper back as well. Related Data Home Medications ?Medication ?Instructions ?Recorded ?Confirmed ?Last Taken ?Type dulaglutide 3 mg/0.5 mL See Rx Instructions .Route . COMPLEX 01/20/23 01/19/25 Unknown History subcutaneous pen injector (Trulicity) omega 9-wfl-mcw-fish oil 1,000 mg 1 cap PO BID 5 01/19/25 Unknown History (120 mg-180 mg) capsule (Fish Oil) Allergies Allergy/AdvReac Type Severity Reaction Status Date / Time Penicillins Allergy Mild Rash Verified 01/19/25 17:29 Review of Systems Review of Systems: CONSTITUTIONAL: Denies fever, chills, or sweats. EYES: Denies visual changes, redness, or discharge. ENT: Denies rhinorrhea, congestion, sore throat, or otalgia. CARDIOVASCULAR: Denies chest pain, palpitations, dizziness, lightheadedness, or edema. RESPIRATORY: Denies cough or dyspnea. GASTROINTESTINAL: Denies abdominal pain, nausea, vomiting, or diarrhea. GENITOURINARY: Denies dysuria or hematuria. SKIN: Denies rash or itching. MUSCULOSKELETAL: Denies neck pain, joint pain, or myalgia. Positive for right upper back pain in right shoulder pain. NEUROLOGIC: Denies headache, numbness, tingling, loss of consciousness, or weakness. PSYCHIATRIC: Denies anxiety or depression. All other systems reviewed are negative, except as documented in HPI. [facility]LY [facility] Past Medical History Medical History Helicobacter positive gastritis Nausea and vomiting GERD (gastroesophageal reflux disease) Diabetes mellitus Dyslipidemia Surgical History Surgical History No pertinent past surgical history Social History Social History Smoking status: Never smoker Alcohol intake: unknown Substance use: unknown Substance use type: unknown Do You Feel Safe in your Home?: Yes Lack of Transportation: No Lack of Food: Never True Current Housing: I Have Housing Concerned About Future Housing: No Difficulty Paying Gas/Electric Bills: No Difficulty Paying for Meds: No Currently Unemployed: No Difficulty w/ Childcare or Family Care: No Living arrangements: with friend(s) Gender identity (if verbalized by the patient): Female Spiritual care concerns: No Comments At the time of my signature, I reviewed and agree with the nursing past medical, surgical, social, and family history. There is no relevant family history pertinent to the patient complaint. Exam Narrative: GENERAL: This is a well-nourished, well-developed adult, in no apparent distress. They are non ill-appearing, nontoxic appearing. HEAD: normocephalic, atraumatic. EYES: Sclera clear/white. Conjunctiva normal. Vision is grossly intact. Extraocular movements intact EARS: External ears normal, Hearing grossly intact. NOSE: External nose normal THROAT: Mucous membranes moist, NECK: Neck supple, non-tender without lymphadenopathy, masses or thyromegaly. No cervical point tenderness, crepitus, step-offs. No midline tenderness. Over range of motion. CARDIOVASCULAR: Regular rate and rhythm without murmurs, gallops, or rubs. RESPIRATORY: Clear to auscultation. Breath sounds equal bilaterally. No wheezes, rales, or rhonchi. CHEST WALL: Nontender to palpate, no paradoxical movements, no flail chest se gment. No obvious injury, bruising, redness, or swelling. SKIN: Right upper back: Small edematous vesicular lesion to right upper back distal above her bra line. Is tender to palpate. Mild erythema or surrounding. Area of fluctuance, no induration, no exudate. No bruising. NEURO: awake, alert, and oriented to person, place and time. There were no obvious focal neurologic abnormalities. EXTREMITIES: Right shoulder: No obvious deformity, bruising, redness, swelling, or injury. Normal range of motion. Pain elicited during shoulder rotation. No bony tenderness. Right radial pulse 2 +and palpable. Sensation intact. Printmaker strength 5/5. Patient can feel me touch the tips of her fingers. Neurovascular status intact distal injury. Capillary refill less than 2 seconds. Radial, ulnar, median nerve distribution intact. BACK: Right upper back is tender to palpate extending up to the right trapezius muscle, no deformity. My best bruising, no crepitus or step-offs.. No CVA tenderness. No thoracic or lumbar point tenderness, crepitus, or step-offs. Course Course Emergency Course: Portions of this record may have been created with voice recognition software Level of Care: Express Care Visit Vital Signs Vital signs: Vital Signs Temperature 97.6 F 01/19/25 17:39 Pulse Rate 88 01/19/25 17:39 Respiratory Rate 18 01/19/25 17:39 Blood Pressure 128/85 01/19/25 17:39 Pulse Oximetry 100 01/19/25 17:39 Oxygen Delivery Room Air 01/19/25 17:39 Temperature 97.6 F 01/19/25 17:39 Pulse Rate 88 01/19/25 17:39 Respiratory Rate 18 01/19/25 17:39 Blood Pressure 128/85 01/19/25 17:39 Pulse Oximetry 100 01/19/25 17:39 Oxygen Delivery Room Air 01/19/25 17:39 Reviewed MDM - Extremity Injury (Upper) [facility] Narrative Medical decision making narrative: Will obtain x-rays of ribs and right shoulder given patient's injury. Patient likely has a small soft tissue injury from striking a pole. No broken skin. No open wounds. No bony tenderness to the spine, no crepitus or step-offs. No midline tenderness. Lung sounds clear to auscultation. Patient likely has muscle skeletal strain with rib contusion given the pain with inspiration. Chest x-ray/right ribs x-rays negative for acute cardiopulmonary findings, no rib fractures. Incidental finding of a calcified breast mass, recommends mammogram. X-ray of right shoulder negative for any fractures or acute fin dings. Discussed these findings with patient. Discussed supportive care and close follow-up given incidental finding of breast mass. Appears on chart review patient had a mass in her left breast that was benign but no mass was ever identified to the right breast likely this is a new finding. Patient given incentive spirometer to help prevent pneumonia and she has pain with taking a breath. Discussed physical exam findings. Advised supportive measures and signs/symptoms to go to the ER. Pt is appropriate for outpt treatment and f/u. Differential Diagnosis Differential diagnosis: Likely other (Rib contusion, muscle strain, soft tissue injury,, rib fracture, humerus fracture, shoulder fracture, dislocation) Imaging Data Radiologist's impression: ITS Impressions Ribs w/Chest X-Ray 01/19/25 18:36 IMPRESSION: 1. No rib fracture or acute cardiopulmonary disease. 2. Normal right shoulder. 3. 2.5 x 1.5 cm calcified mass at the right breast. Correlate with mammography. Shoulder X-Ray 01/19/25 18:36 IMPRESSION: 1. No rib fracture or acute cardiopulmonary disease. 2. Normal right shoulder. 3. 2.5 x 1.5 cm calcified mass at the right breast. Correlate with mammography. Critical Care Time Critical Care Time Critical Care Time: No Discharge Plan Discharge Clinical Impression: Work related injury, Upper back pain on right side Contusion of rib on right side Qualifiers: Encounter type: initial encounter Qualified Code(s): S29.8XXA - Other specified injuries of thorax, initial encounter Breast mass, right Qualifiers: Breast mass location: unspecified quadrant Qualified Code(s): N63.10 - Unspecified lump in the right breast, unspecified quadrant Patient Disposition: Home Condition: Stable Instructions: Back Pain (ED), Rib Contusion (ED) Additional Instructions: Las radiograf?as de hombro derecho, costillas derechas y t?rax no muestran fracturas ni hallazgos agudos. Se detect? incidentalmente juan pablo masa calcificada en la mama derecha de aproximadamente 2.5 x 1.5 cm. Consulte con barroso m?dico de cabecera sobre jorge hallazgo; probablemente necesite juan pablo mamograf?a. Descanse y evite cualquier cosa que pueda empeorar el dolor. Aplique hielo en la leo afectada slade 15 a 20 minutos varias veces al d?a slade las pr?ximas 24 a 48 horas. Luego, aplique calor slade 15 a 20 minutos varias veces al d?a. Puede komal ibuprofeno de 600 mg a 800 mg cada 6 a 8 horas. No exceda los 800 mg de ibuprofeno por dosis. No exceda los 3200 mg de ibuprofeno al d?a. Puede komal hasta 1000 mg de paracetamol cada 6 a 8 horas. No exceda los 1000 mg por dosis ni los 4000 mg de Tylenol al d?a. Utilice el espir?metro de incentivo mientras est? despierto para prevenir la neumon?a. Respire profundamente 10 veces cada dos horas, en punto, mientras est? despierto. Consulte con barroso m?dico de cabecera en 3 a 5 d?as para juan pablo reevaluaci?n. Regrese a urgencias si presenta dolor intenso, entumecimiento, hormigueo, dolor en el pecho, dificultad para respirar, tos, fiebre, debilidad, confusi?n o cualquier otra preocupaci?n grave. The x-ray of your right shoulder, and right ribs and chest x-ray are negative for any fractures or acute findings. There is an incidental finding of a calcified right breast mass measuring approximately 2.5 x 1.5 cm. Please follow-up with your primary care provider about this finding, likely you will need a mammogram performed. Rest and avoid anything that may worsen your pain. Apply ice 15 and 20 minutes few times a day to the affected area for the next 24-48 hours then switch to heat 15-20 minutes a few times a day. You may take ibuprofen 600 mg to 800 mg every 6-8 hours. Do not exceed more than 800 mg of ibuprofen per dose. Do not exceed more than 3200 mg ibuprofen in a day. You may take up to 1000 mg Tylenol every 6-8 hours. Do not exceed 1000 mg per dose, do exceed more than 4000 mg of Tylenol in a day. Use the incentive spirometer while awake to prevent pneumonia. Please take 10 deep breaths every 2 hours on the hour while awake. Follow up with your primary care provider in 3-5 days for re-evaluation. Return to ER for any severe pain, numbness, tingling, chest pain, shortness of breath, cough, fevers, weakness, confusion, or any serious concerns. Patient Language: Turkish Prescriptions: No Action fenofibrate 160 mg tablet 160 mg PO DAILY Qty: 30 5RF Trulicity 3 mg/0.5 mL pen injector See Rx Instructions .ROUTE .COMPLEX Rx Instructions: 3 mg subcutaneously pravastatin 10 mg tablet See Rx Instructions .ROUTE .COMPLEX Qty: 30 5RF Dose Instruction: Take 1 tablet by mouth once daily Rx Instructions: Take 1 tablet by mouth once daily omega 2-ukw-imv-fish oil [Fish Oil] 1,000 (120-180) mg capsule 1 cap PO BID Follow-up/Referrals: Linda Mcpherson PA-C [Primary Care Provider, Family Practice] Stand Alone Forms: Work/School Release IP Time of Disposition: 19:00
== END 2025-01-19 19:02 | disposition home or self-care (01) ==
DX: M54.6 Pain in thoracic spine (principal); S20.221A Contusion of right back wall of thorax, initial encounter; W22.8XXA Striking against or struck by other objects, initial encounter; Y99.0 Civilian activity done for income or pay; N63.0 Unspecified lump in unspecified breast; E11.9 Type 2 diabetes mellitus without complications; Z79.85 Long-term (current) use of injectable non-insulin antidiabetic drugs; E78.5 Hyperlipidemia, unspecified; K21.9 Gastro-esophageal reflux disease without esophagitis
CPT/HCPCS: 71101; 73030; 99214; G0463

== ENCOUNTER 2025-02-28 16:41 | Emergency (ER) | payer OTHER, SELFPAY ==
--- NOTE | ~2025-02-28 | CT_ITS ---
EXAMINATION: CT abdomen pelvis w con DATE: 02/28/2025 21:09 INDICATION: Right upper quadrant abdominal pain. TECHNIQUE: Computed tomography (CT) of the abdomen and pelvis was performed with 100 cc intravenous contrast. Automated exposure control and iterative reconstruction technique were employed. The dose-length product was 617.12 mGy-cm. COMPARISON: CT dated 02/04/2022. FINDINGS: Lung bases do not show acute findings. No focal lesions of liver and spleen. Gallbladder shows no edema or calcified stones. Pancreas shows no acute findings. Kidneys do not show acute findings. No evidence of small bowel obstruction. Retroverted uterus. No adnexal mass or fluid collections. The appendix is not distinctly visible. IMPRESSION: 1. No acute findings noted in the upper abdomen and pelvis on CT examination. Reviewed, dictated and finalized at location T. E REVIEWER
[2025-02-28 16:51] VITALS: BP 130/89; PULSE 84; RESP 20; TEMP 36.3; O2SAT 100
[2025-02-28] MEDS: LACTATED RINGERS 1,000 ML 999 ML IV CONT (19:07)
[2025-02-28] MEDS: FAMOTIDINE 20 MG/2 ML VIAL IV PUSH (19:07)
[2025-02-28] MEDS: ONDANSETRON INJ 4 MG/2 ML VIAL IV PUSH (19:07)
[2025-02-28 19:08] VITALS: BP 130/84; PULSE 84; RESP 16; TEMP 36.3; O2SAT 99
[2025-02-28] MEDS: PANTOPRAZOLE SODIUM IV 40 MG VIAL IV PUSH (19:08)
[2025-02-28] MEDS: MAG HYDROX/AL HYDROX/SIMETH 30 ML UDC PO (19:08)
[2025-02-28 19:13] LABS: Hematocrit 36.2 % (37.0-47.0); Hemoglobin 11.5 g/dL (12.0-15.0); Immature Granulocyte Percent A 0.6 % (0-0.5); Lymphocytes Absolute Auto 2.91 K/mm3 (0.9-3.2); Mean Corpuscular HGB Conc 31.8 g/dl (32-36); Mean Corpuscular Hemoglobin 26.4 pg (26-34); Mean Corpuscular Volume 83.2 fl (80-100); Nucleated Red Blood Cells Absolute Auto 0.000 K/mm3 (0.0-0.012); Nucleated Red Blood Cells Perc 0.0 % (0.0-0.2); Platelet Count Result 393 k/mm3 (150-375); Red Blood Count 4.35 M/mm3 (4.2-5.4); White Blood Count 8.6 K/mm3 (4.5-10.0)
[2025-02-28 19:26] LABS: Alanine Aminotransferase 25 U/L (6-35); Albumin Level 4.5 g/dL (3.5-5.1); Alkaline Phosphatase 78 U/L (38-126); Anion Gap 9 mmol/L (4-12); Aspartate Amino Transferase 27 U/L (14-36); Bilirubin,Total 0.3 mg/dL (0.2-1.3); Blood Urea Nitrogen 6 mg/dL (7-17); Calcium 9.2 mg/dL (8.4-10.2); Carbon Dioxide 24 mmol/L (22-30); Chloride 102 mmol/L (98-107); Estimated CRCL calculation 133 ml/min; Estimated Glomerular Filt Rate > 60; Glucose 111 mg/dL (65-110); Lipase 83 U/L (23-300); Potassium 3.6 mmol/L (3.4-5.0); Sodium 135 mmol/L (137-145); Total Protein 7.7 g/dL (6.3-8.2)
[2025-02-28 20:00] VITALS: BP 128/87; PULSE 84; RESP 18; TEMP 36.9; O2SAT 100
[2025-02-28] MEDS: METOCLOPRAMIDE HCL INJ 10 MG/2 ML VIAL IV PUSH (20:07)
[2025-02-28 20:19] LABS: BEDSIDEPREGUCG Negative (Negative)
--- NOTE | 2025-02-28 20:48 | ED_ITS ---
HPI - Abdominal Pain General Chief Complaint: Abdominal Pain Stated Complaint: abd pain Time Seen by Provider: 02/28/25 18:35 History of Present Illness HPI narrative: Patient presenting here with epigastric pain, feels like a burning sensation going up her chest, to her right upper quadrant, with some nausea vomiting, she has also been having a mild headache she has taken ibuprofen for. Related Data Home Medications ?Medication ?Instructions ?Recorded ?Confirmed ?Last Taken ?Type dulaglutide 3 mg/0.5 mL See Rx Instructions .Route . COMPLEX 01/20/23 01/19/25 Unknown History subcutaneous pen injector (Trulicity) omega 0-kyv-bkv-fish oil 1,000 mg 1 cap PO BID 11/13/ 5 01/19/25 Unknown History (120 mg-180 mg) capsule (Fish Oil) Allergies Allergy/AdvReac Type Severity Reaction Status Date / Time Penicillins Allergy Mild Rash Verified 02/28/25 16:52 Review of Systems 2 Review of Systems: All systems reviewed & are unremarkable except as noted in HPI and below PMFSH Past Medical History Medical History Helicobacter positive gastritis Nausea and vomiting GERD (gastroesophageal reflux disease) Diabetes mellitus Dyslipidemia Surgical History Surgical History No pertinent past surgical history Social History Social History Smoking status: Never smoker Alcohol intake: unknown Substance use: unknown Substance use type: unknown Lack of Transportation: No Lack of Food: Never True Current Housing: I Have Housing Concerned About Future Housing: No Difficulty Paying Gas/Electric Bills: No Difficulty Paying for Meds: No Currently Unemployed: No Difficulty w/ Childcare or Family Care: No Living arrangements: with friend(s) Gender identity (if verbalized by the patient): Female Spiritual care concerns: No Exam 2 Narrative: EXAMINATION OF ORGAN SYSTEMS/BODY AREAS: Constitutional: Vital signs per nursing GENERAL: Appears slightly uncomfortable HEAD: Normal with no signs of head trauma. EYES: EOMI, conjunctiva normal ENT: Hearing grossly intact LUNGS: Nonlabored breathing. HEART: Regular rate and rhythm ABD: Soft, slight epigastric tenderness to palpation EXT: Normal range of motion SKIN: No rashes or lesions. NEURO: Alert. No gross focal sensory or strength deficits. PSYCH: Normal affect Course Vital Signs Vital signs: Vital Signs Temperature 97.3 F L 02/28/25 16:51 Pulse Rate 84 02/28/25 16:51 Respiratory Rate 20 02/28/25 16:51 Blood Pressure 130/89 02/28/25 16:51 Pulse Oximetry 100 02/28/25 16:51 Oxygen Delivery Room Air 02/28/25 16:51 Temperature 98.5 F 02/28/25 20:00 Pulse Rate 84 02/28/25 20:00 Respiratory Rate 18 02/28/25 20:00 Blood Pressure 128/87 02/28/25 20:00 Pulse Oximetry 100 02/28/25 20:00 Oxygen Delivery Room Air 02/28/25 16:51 MDM MDM Narrative Medical decision making narrative: Electronic medical record was reviewed. Patient presented to the ED with complaint of abdominal pain and vomiting with a slight headache, history of gastritis. Vitals were within acceptable limits. Physical exam revealed epigastric tenderness. IV access was established by nursing staff. Patient was given zofran, famotidine, fluids, Maalox, Protonix, Reglan. CBC, BMP, lipase, LFTs, bilirubin and alk phos were obtained. Labs were pertinent for labs within acceptable limits. On re-evaluation, patient still reporting pain, would like to have a CT. This is unremarkable. On re-evaluation, patient now feels much better, symptoms improved. I did discuss dietary changes and things to avoid, and will provide follow-up to GI. Patient agreeable to plan. All questions answered Bread Slicer Machine used Differential Diagnosis Differential Diagnosis: gastritis, gastroenteritis, cholecystitis, pancreatitis, appendicitis Lab Data 02/28/25 18:58 02/28/25 18:58 Labs: Lab Results 02/28/25 02/28/25 Range/Units 18:58 20:18 WBC 8.6 (4.5-10.0) K/mm3 RBC 4.35 (4.2-5.4) M/mm3 Hgb 11.5 L (12.0-15.0) g/dL Hct 36.2 L (37.0-47.0) % MCV 83.2 (80-100) fl MCH 26.4 (26-34) pg MCHC 31.8 L (32-36) g/dl RDW 14.0 (11.5-14.5) % Plt Count 393 H (150-375) k/mm3 MPV 10.4 (7.4-10.4) fl Immature Gran % (Auto) 0.6 H (0-0.5) % Neut % (Auto) 55.1 (45.5-73.1) % Lymph % (Auto) 33.7 (18.3-44.2) % Bracken % (Auto) 7.4 (2.6-8.5) % Eos % (Auto) 2.3 (0-4.4) % Baso % (Auto) 0.9 (0.2-1.2) % Lymph # (Auto) 2.91 (0.9-3.2) K/mm3 Bracken # (Auto) 0.6 (0.1-0.6) K/mm3 Eos # (Auto) 0.2 (0-0.3) K/mm3 Baso # (Auto) 0.1 (0.0-0.1) K/mm3 Abs Immat Gran (auto) 0.05 H (0.00-0.031) K/mm3 Absolute Neuts (auto) 4.8 (1.3-6.7) K/mm3 Absolute Nucleated RBC 0.000 (0.0-0.012) K/mm3 Nucleated RBC % 0.0 (0.0-0.2) % Sodium 135 L (137-145) mmol/L Potassium 3.6 (3.4-5.0) mmol/L Chloride 102 (98-107) mmol/L Carbon Dioxide 24 (22-30) mmol/L Anion Gap 9 (4-12) mmol/L BUN 6 L (7-17) mg/dL Creatinine 0.48 L (0.7-1.0) mg/dL Estim Creat Clear Calc 133 ml/min Estimated GFR > 60 (59 - ) Glucose 111 H (65-110) mg/dL Calcium 9.2 (8.4-10.2) mg/dL Total Bilirubin 0.3 (0.2-1.3) mg/dL AST 27 (14-36) U/L ALT 25 (6-35) U/L Alkaline Phosphatase 78 (38-126) U/L Total Protein 7.7 (6.3-8.2) g/dL Albumin 4.5 (3.5-5.1) g/dL Lipase 83 (23-300) U/L POC Urine HCG, Qual Negative (Negative) Imaging Data Radiologist's impression: ITS Impressions Abdomen/Pelvis CT 02/28/25 21:11 IMPRESSION: 1. No acute findings noted in the upper abdomen and pelvis on CT examination. Discharge Plan Discharge Clinical Impression: Nausea and vomiting, Epigastric abdominal pain Patient Disposition: Home Condition: Stable Instructions: Epigastric Pain (ED) Additional Instructions: Please follow up with your doctor; take medications as prescribed. You can always return for any further issues. Patient Language: Brazilian Prescriptions: New famotidine 20 mg tablet 20 mg PO DAILY Qty: 30 0RF alum-mag hydroxide-simeth [Maalox Advanced] 200-200-20 mg/5 mL suspension 10 ml PO QID PRN (Reason: dyspepsia) Qty: 200 0RF Rx Instructions: administer between meals and at bedtime ondansetron 4 mg tablet,disintegrating 4 mg PO Q8H PRN (Reason: nausea and vomiting) Qty: 14 0RF No Action fenofibrate 160 mg tablet 160 mg PO DAILY Qty: 30 5RF Trulicity 3 mg/0.5 mL pen injector See Rx Instructions .ROUTE .COMPLEX Rx Instructions: 3 mg subcutaneously pravastatin 10 mg tablet See Rx Instructions .ROUTE .COMPLEX Qty: 30 5RF Dose Instruction: Take 1 tablet by mouth once daily Rx Instructions: Take 1 tablet by mouth once daily omega 4-dji-rea-fish oil [Fish Oil] 1,000 (120-180) mg capsule 1 cap PO BID Follow-up/Referrals: Linda Mcpherson PA-C [Primary Care Provider, Family Practice] Vishal Verma MD [Physician, Gastroenterology] - 3 Days
--- OUTSIDE RECORDS SUMMARY | 2025-02-28 21:02 | XMS_ITS | Clinical Summary ---
Author Organization [facility] Address [facility] [place] [address] Care Team Providers Care Service Now Developer Name Role Phone Eugene Contreras DO Primary Care Provider [phone] Allergies Active Allergy Reactions Criticality Noted Date [...] by mouth 2 (two) times daily. Active Active Problems Problem Noted Date Diagnosed Date Varicose veins of bilateral lower extremities wi th pain 12/28/2024 Transportation insecurity 03/13/2024 DM type 2 with diabetic mixed hyperlipidemia History of female sterilization 04/06/2020 Encounters Date Type Department Care Team Description 02/06/2025 Telephone [facility] [address] [address] Gurpreet Peter MD Results (VENOUS REFLUX) 01/10/2025 11:00 AM CDT - 01/10/2025 11:59 PM CDT Hospital Encounter [facility] [place] [address] Gurpreet Peter MD Discharge Disposition: Home or Self Care (Routine Discharge) 01/10/2025 Travel 12/28/2024 11:00 AM CDT Office Visit [facility] [address] [address] Gurpreet Peter MD Varicose Veins 12/28/2024 Orders Only [facility], [address] [address] Gurpreet Peter MD 12/28/2024 Travel 12/04/2024 Orders Only [facility], [address] [address] Dione Garcia MA 12/01/2024 Scan [facility], [address] [address] Scanned, Doc Pccl from Last 3 Months [...] 3-dose series) 04/21/2024 11/19/2023, 10/20/2023 COVID-19 Vaccine (2024- season) 2024 10/21/2023, 03/29/2021, 09/24/2020, Additional history [...] [facility] Pat.Name: CHENG ABRAMS Pat.ID: [id number] .Date: 01/10/2025 Refer.MD: Eugene Contreras Exam Time: 11:21:00 AM Study Type:TESSA VS Venous Duplex Legs DESTINI Age: 3 1985,39Y Sex: F Sonogrphr: oRsalio Mast Oneil Pat. Stat.:Outpatient History / Clinical:Varicose veins of [...] [facility] Pat.Name: CHENG ABRAMS Pat.ID: [id number] St.Date: 01/10/2025 Refer.MD: Eugene Contreras Exam Time: 11:21:00 AM Study Type:TESSA VS Venous Duplex Legs DESTINI Age: 3 1985,39Y Sex: F Sonogrphr: Rosalio Mast T Pat. Stat.:Outpatient History / Clinical:Varicose veins of [...] 3 Months Insurance [employer] Care Teams Service Now Developer Relationship Specialty Start Date End Date Eugene Contreras DO [address] [place] [address] PCP - General INTERNAL MEDICINE 12/04/24
--- OUTSIDE RECORDS SUMMARY | 2025-02-28 21:02 | XMS_ITS | Clinical Summary ---
Author Organization [facility] Address [address] [place] [address] Care Team Providers Care Vehicle Calibration Engineer Name Role Phone Unavailable Primary Care Provider Unavailabl e Social History Tobacco Use Types Packs/Day Years Used Date Smoking Tobacco: Never Assessed Comments Unknown Sex and Gender Information Value Date Recorded Sex Assigned at Not on file Legal Sex Female 3:52 PM CDT Gender Identity Not on file Sexual Orientation Not on file Plan of Treatment Health Maintenance Due Date Last Done Comments DIABETES ANNUAL FOOT EXAM 05/27/2005 DIABETES ANNUAL RETINAL EXAM 05/27/2005 DIABETES HBA1C Q 6 MONTHS 05/27/2005 DIABETES MICROALBUMIN ANNUAL SCREEN 05/27/2005 LDL CHOLESTEROL ANNUAL 05/27/2005 DTAP/TDAP/TD VACCINES (1 - Tdap) 05/27/2006 HEPATITIS B VACCINES (1 of 3 - 19+ 3-dose series) 10/2006 HPV/Cotest (21-29) 05/27/2008 CERVICAL CANCER SCREENING 05/27/2017 HPV/Cotest (30-65) 05/27/2017 PAP SMEAR 05/27/2017 INFLUENZA VACCINE (#1) 2024 HPV VACCINES (No Doses Required) Completed
[2025-02-28] MEDS: dexAMETHasone SOD PHOS INJ 10 MG/ML 1 ML VIAL IV PUSH (21:29)
[2025-02-28 21:34] VITALS: BP 109/73; PULSE 78; RESP 16; TEMP 36.8; O2SAT 98
== END 2025-02-28 21:37 | disposition home or self-care (01) ==
PROVIDERS: Emergency Provider Emergency Medicine
DX: R10.13 Epigastric pain (principal); R11.2 Nausea with vomiting, unspecified; E11.9 Type 2 diabetes mellitus without complications; E78.5 Hyperlipidemia, unspecified; K21.9 Gastro-esophageal reflux disease without esophagitis; Z79.85 Long-term (current) use of injectable non-insulin antidiabetic drugs; Z79.899 Other long term (current) drug therapy
CPT/HCPCS: 36415; 74177; 80053; 81025; 83690; 85025; 96361; 96374; 96375; 99284; A9270; J1100; J2405; J2470; J2765; J7120; Q9967